=== PATIENT | male | born 1935 | race Caucasian/White ===

== ENCOUNTER 2024-01-02 11:10 | Outpatient (RCR) | payer MEDICARE, SELFPAY | END 2024-01-02 23:59 | disposition home or self-care (01) | LOC: RPT 11:10 | PROVIDERS: ATTENDING PHYSICIAN Internal Medicine | DX: R42 Dizziness and giddiness (principal); R26.2 Difficulty in walking, not elsewhere classified; R26.9 Unspecified abnormalities of gait and mobility; Z73.6 Limitation of activities due to disability; M62.81 Muscle weakness (generalized) | CPT/HCPCS: 97110; 97112; 97162 ==

== ENCOUNTER 2024-01-18 15:08 | Emergency (ER) | payer MEDICARE, SELFPAY ==
[2024-01-18 15:18] VITALS: BP 134/92
[2024-01-18 15:52] LABS: % Basophils 0.5 % (0-2); % Eosinophils 4.1 % (0-6); % Immature Granulocytes 0.3 % (0-0.5); % Lymphocytes 35.4 % (20.5-51.1); % Monocytes 6.4 % (1.7-9.3); % Neutrophils 53.3 % (42.2-75.2); Absolute Eosinophils 0.3 10^3/uL (0-0.7); Absolute Lymphocytes 2.6 10^3/uL (1.2-3.4); Absolute Monocytes 0.5 10^3/uL (0.1-0.6); Absolute Neutrophils 3.9 10^3/uL (1.4-6.5); Hemoglobin 14.2 g/dL (13.0-18.0); Mean Corp Hgb Conc. 34.6 g/dL (33.0-37.0); Mean Corpuscular Hgb 31.7 pg (27.0-31.0); Mean Corpuscular Volume 91.5 fL (80.0-94.0); Nucleated Red Blood Cells % 0 % (-); Platelet Count 230 10^3/uL (130-400); Red Blood Cell Count 4.48 10^6/uL (4.70-6.10); Red Cell Dist. Width 13.4 % (11.5-14.5); White Blood Cell Count 7.3 10^3/uL (4.8-10.8)
[2024-01-18 16:00] LABS: ALT (SGPT) 26 U/L (0-50); AST (SGOT) 32 U/L (17-59); Albumin 4.6 g/dl (3.5-5.0); Alkaline Phosphatase 71 U/L (38-126); Blood Urea Nitrogen 15 mg/dl (9-20); Calcium 9.9 mg/dl (8.4-10.2); Carbon Dioxide 26 mmol/L (22-30); Chloride 105 mmol/L (98-107); Glucose 95 mg/dl (70-99); Sodium 137 mmol/L (135-145); Total Bilirubin 0.9 mg/dl (0.2-1.3); Total Protein 7.4 g/dl (6.3-8.2); eGFR > 60.00
[2024-01-18 16:03] LABS: INR 1.06; PT 13.9 Sec (11.4-14.6)
[2024-01-18 16:08] LABS: APTT 27.7 Sec (23.4-35.0)
[2024-01-18 16:11] LABS: Troponin I < 0.012 ng/ml
--- NOTE | 2024-01-18 18:08 | ED.CVA ---
History of Present Illness
General
Chief Complaint: CVA/TIA Symptoms
Time Seen by Provider: 01/18/24 18:08
Onset of Stroke Symptoms
Onset of symptoms known: Yes
Date of onset of symptoms: 01/18/24
Time of onset of symptoms: 17:15
Time pt last seen normal is known: Yes
Date last time pt seen normal: 01/18/24
Time last time pt seen normal: 17:15
Travel History
Have you had any contact with someone who has COVID-19?: No
Do you have any symptoms of coronavirus? Fever > 100 degrees, chills, cough, shortness of breath, sore throat, loss of taste or smell, muscle aches, or headache?: No
History of Present Illness
History of Present Illness:
HPI: Patient came in from home by ambulance. Apparently there was some concern for stroke however there was no evidence for stroke on EMT evaluation. I spoke to the caregiver at bedside who states that for several minutes, the patient had
expressive aphasia and there seem to be a unilateral facial droop. The patient himself seems to minimize the symptoms and relates it to maybe even having a tic from when he was a young child. Regardless he has no symptoms currently. He apparently
was on the phone with his ex- in [place] to also noted that there seem to be something wrong. Caregiver at bedside also noted that the patient had recurrent episodes of urination 4 times during this episode.
EXAM:
GENERAL: Well appearing in no distress
HEENT: Moist oral mucosa, no carotid bruits noted
CARDIOVASCULAR: No murmurs, normal heart rate, regular rhythm, No chest wall tenderness
PULMONARY: No respiratory distress, breath sounds are clear and equal
ABDOMEN: Soft with no peritoneal signs, no tenderness
NEUROLOGIC: Very good strength all extremities, no coordination deficits, NIHSS equals 0, GCS 15, normal finger-nose testing bilaterally, he was able to walk without assistance other than his cane
PSYCHIATRIC: Appropriate mental status, normal insight and judgement
EXTREMITIES: Nontender, no edema, moves all extremities equally
SKIN: No rash, no lesions
TIME OF INITIAL ENCOUNTER: 6:30 PM
NUMBER AND COMPLEXITY OF PROBLEMS ADDRESSED AT THE ENCOUNTER
� Chronic conditions affecting care: High blood pressure and high cholesterol, has had problems with vertigo, diet-controlled diabetes
� Acute Exacerbation and/or Progression of Chronic Illness: This is an acute problem
� Differential Diagnosis includes: TIA/CVA, UTI, electrolyte abnormality, anemia
AMOUNT AND/OR COMPLEXITY OF DATA TO BE REVIEWED AND ANALYZED
� I performed an independent evaluation of and my interpretation is:
EKG: Sinus 80, right bundle branch block, frequent PACs
CT: CT of the brain shows no acute abnormality
X-rays:
Laboratory Studies: CBC, chemistries unremarkable
Other:
� Review of other/old records: I reviewed old records, there is no change in his hemoglobin today compared to prior
� Clinical information was obtained by an independent historian: I spoke to caregiver at bedside
� Prescriptions/Medications Considered but not given:
� Further testing considered but not performed: I considered CTA for further evaluation of the carotids
RISK OF COMPLICATIONS AND/OR MORBIDITY OR MORTALITY OF PATIENT MANAGEMENT
� Social determinants of health affecting care: Lives at home and has care at home
� Discussion with other providers: I discussed case with Dr. Umana
� Escalation of care including admission/observation vs risk of discharge considered: Suspect TIA however the patient adamantly refuses to stay in the hospital. I informed him of the risks and benefits of staying in the
hospital. Lab work is unremarkable. NIHSS 0. Although caregiver was concerned about the possible of UTI, urinalysis shows no evidence of UTI, other basic labs normal. I discussed case with Dr. Umana�I offered CTA to the patient the patient
adamantly states that he had recent carotid evaluation by ultrasound with Dr. Tapia. I also suggest that he start a baby aspirin. I informed patient and the caregiver that his symptoms could be a warning that he may have a stroke in the future.
Past History
Past History
ED Past Medical History: Cancer (Prostate cancer), HTN, Hypercholesterolemia and Other (Kidney stones, osteoarthritis, vertigo)
ED Past Surgical History: Orthopedic (Bilateral hip replacement) and Other (Lithotripsy 2003)
Social History
Tobacco: Smoker (Cigars)
Alcohol: Occasional
Drug: None
Personal:
Living: alone
Employment: Retired ([employer])
Family History
Family History: Hypertension and Other (stroke father 70); Negative CAD or Sudden
Phy Exam
Physical Exam
Physical Exam:
See HPI
Course
Orders/Labs/Results
Orders:
Orders
01/18/24 15:29
ECG [Electrocardiogram (*1)] Urgent
Reason for Study: TIA/Stroke
01/18/24 15:30
EKG- Treatment ONCE
01/18/24 15:37
Complete Blood Count/With Diff Urgent
Comprehensive Metabolic Panel Urgent
PTT Urgent
Prothrombin Time Urgent
Troponin I Urgent
01/18/24 18:40
Urinalysis Reflex To Culture Urgent
Date Specimen was Collected: 01/18/24
Time Specimen was Collected: 18:39
01/18/24 18:50
CT Head W/o Iv Contrast Urgent
Comment:
Reason For Exam: resolved aphasia
Abnormal Lab Results
01/18/24
15:37
RBC 4.48 L 10^6/uL
(4.70-6.10)
MCH 31.7 H pg
(27.0-31.0)
01/18/24 15:37
01/18/24 15:37
Vital Signs
Initial and Last Documented VS:
Initial Vital Signs
Temp Pulse Resp BP Pulse Ox
98.1 F 63 16 134/92 100
01/18/24 15:18 01/18/24 15:18 01/18/24 15:18 01/18/24 15:18 01/18/24 15:18
Last Documented Vital Signs
Temp Pulse Resp BP Pulse Ox
98.1 F 63 16 134/92 100
01/18/24 15:18 01/18/24 15:18 01/18/24 15:18 01/18/24 15:18 01/18/24 15:18
*Critical Care Note
Total Time (30-74mins, 75-104mins- exclusive of procedures): Not Applicable
ED Attending Note
-
Portions of this chart may have been created with voice recognition software.� Occasional wrong word or��sound alike� substitutions may have occurred due to the inherent limitations of voice recognition software.
Discharge Plan
Departure
Prescriptions:
No Action
nifedipine 60 MG tablet extended release
60 mg PO DAILY
Centrum Silver 1 EACH tablet
1 ea PO DAILY
atorvastatin [Lipitor] 10 mg Tablet
10 mg PO HS
Referrals:
NONE,* [Family Provider] -
Interventions
Interventions:
*Risk Screen - Suicide Last Done: 01/18/24 19:17
*General Assessment Last Done: 01/18/24 19:17
*Neglect/Abuse Screening Last Done: 01/18/24 19:17
ED- Fall Risk Assessment Last Done: 01/18/24 19:17
ED- Pulmonary Assessment Last Done: 01/18/24 19:17
ED- Neurological Assessment Last Done: 01/18/24 19:17
ED- Cardiac Assessment Last Done: 01/18/24 19:17
ED Swallowing Screen Last Done: 01/18/24 19:19
Discharge Date and Time
Print Language: TELUGU
[2024-01-18 18:45] LABS: Urine Albumin Negative (Neg - Trace); Urine Bilirubin Negative (Negative); Urine Character Clear (Clear); Urine Color Yellow; Urine Glucose Negative (Negative); Urine Ketone Negative (Negative); Urine Leukocyte Negative (Negative); Urine Nitrite Negative (Negative); Urine Occult Blood Negative (Negative); Urine Specific Gravity 1.005 (<1.030); Urine Urobilinogen Negative (Neg - 1+)
== END 2024-01-18 21:24 | disposition home or self-care (01) ==
LOC: EMR 15:08
PROVIDERS: Emergency Medicine; EMERGENCY PHYSICIAN Emergency Medicine
DX: G45.9 Transient cerebral ischemic attack, unspecified (principal); I10 Essential (primary) hypertension; F17.290 Nicotine dependence, other tobacco product, uncomplicated
CPT/HCPCS: 99285; 70450; 80053; 81003; 84484; 85025; 85610; 85730; 93005

== ENCOUNTER 2024-02-06 09:59 | Outpatient (RCR) | payer MEDICARE, SELFPAY | END 2024-02-06 23:59 | disposition home or self-care (01) | LOC: RPT 09:59 | PROVIDERS: ATTENDING PHYSICIAN Internal Medicine | DX: R42 Dizziness and giddiness (principal); R26.2 Difficulty in walking, not elsewhere classified; Z73.6 Limitation of activities due to disability | CPT/HCPCS: 97110; 97112 ==

== ENCOUNTER 2024-03-02 10:15 | Outpatient (RCR) | payer MEDICARE, SELFPAY | END 2024-03-02 23:59 | disposition home or self-care (01) | LOC: RPT 10:15 | PROVIDERS: ATTENDING PHYSICIAN Internal Medicine | DX: R42 Dizziness and giddiness (principal); R26.2 Difficulty in walking, not elsewhere classified; Z91.81 History of falling | CPT/HCPCS: 97110; 97112 ==

== ENCOUNTER → 2024-03-12 11:15 | Outpatient (REF) | payer MEDICARE, SELFPAY | LOC: RAD 11:15 | PROVIDERS: ATTENDING PHYSICIAN Internal Medicine | DX: M25.551 Pain in right hip (principal); M25.512 Pain in left shoulder | CPT/HCPCS: 73030; 73502 ==

== ENCOUNTER 2024-03-17 18:16 | Emergency (ER) | payer SELFPAY ==
[2024-03-17 18:20] VITALS: BP 156/74
[2024-03-17 18:25] VITALS: BP 152/55
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
[2024-03-17 19:00] VITALS: BP 125/75
--- NOTE | 2024-03-17 19:30 | EDRN ---
Patient ambulated to the restroom using a walker and back in bed resting comfortably.
[2024-03-17 19:40] LABS: % Basophils 0.4 % (0-2); % Eosinophils 3.5 % (0-6); % Immature Granulocytes 0.4 % (0-0.5); % Lymphocytes 18.5 % (20.5-51.1); % Monocytes 9.5 % (1.7-9.3); % Neutrophils 67.7 % (42.2-75.2); Absolute Eosinophils 0.4 10^3/uL (0-0.7); Absolute Lymphocytes 1.9 10^3/uL (1.2-3.4); Absolute Neutrophils 7.1 10^3/uL (1.4-6.5); Hematocrit 37.6 % (39.0-52.0); Hemoglobin 13.5 g/dL (13.0-18.0); Mean Corp Hgb Conc. 35.9 g/dL (33.0-37.0); Mean Corpuscular Hgb 31.3 pg (27.0-31.0); Mean Corpuscular Volume 87.2 fL (80.0-94.0); Mean Platelet Volume 9.8 fL (7.4-10.4); Nucleated Red Blood Cells % 0 % (-); Platelet Count 237 10^3/uL (130-400); Red Blood Cell Count 4.31 10^6/uL (4.70-6.10); Red Cell Dist. Width 12.8 % (11.5-14.5); White Blood Cell Count 10.5 10^3/uL (4.8-10.8)
[2024-03-17 19:44] LABS: Urine Albumin Negative (Neg - Trace); Urine Bilirubin Negative (Negative); Urine Character Clear (Clear); Urine Color Yellow; Urine Glucose Negative (Negative); Urine Ketone Negative (Negative); Urine Leukocyte Negative (Negative); Urine Nitrite Negative (Negative); Urine Occult Blood Negative (Negative); Urine Urobilinogen Negative (Neg - 1+); Urine pH 6.5 (5.0-9.0)
[2024-03-17 19:56] LABS: ALT (SGPT) 19 U/L (0-50); AST (SGOT) 27 U/L (17-59); Alkaline Phosphatase 77 U/L (38-126); Blood Urea Nitrogen 17 mg/dl (9-20); Calcium 9.2 mg/dl (8.4-10.2); Carbon Dioxide 26 mmol/L (22-30); Chloride 101 mmol/L (98-107); Glucose 119 mg/dl (70-99); Potassium 3.7 mmol/L (3.5-5.1); Sodium 135 mmol/L (135-145); Total Bilirubin 1.1 mg/dl (0.2-1.3); Total Protein 6.7 g/dl (6.3-8.2); eGFR > 60.00
[2024-03-17 20:00] VITALS: BP 138/75
[2024-03-17 21:13] VITALS: BP 105/76
--- NOTE | 2024-03-17 21:15 | EDRN ---
Patient ambulated into the restroom and back in bed resting comfortably, Dr. Medina will be coming in to speak with him about discharge plan.
== END 2024-03-17 22:12 | disposition home or self-care (01) ==
LOC: EMR 18:16
PROVIDERS: EMERGENCY PHYSICIAN Student in an Organized Health Care Education/Training Program; FAMILY PHYSICIAN Internal Medicine
DX: Z04.1 Encounter for examination and observation following transport accident (principal); V89.2XXA Person injured in unspecified motor-vehicle accident, traffic, initial encounter; Y92.410 Unspecified street and highway as the place of occurrence of the external cause; I10 Essential (primary) hypertension; E78.00 Pure hypercholesterolemia, unspecified; M19.90 Unspecified osteoarthritis, unspecified site; F17.290 Nicotine dependence, other tobacco product, uncomplicated; Z82.3 Family history of stroke; Z82.49 Family history of ischemic heart disease and other diseases of the circulatory system; Z85.46 Personal history of malignant neoplasm of prostate; Z87.442 Personal history of urinary calculi; Z96.643 Presence of artificial hip joint, bilateral
CPT/HCPCS: 99283; 80053; 81003; 85025

== ENCOUNTER → 2024-03-19 10:55 | Outpatient (REF) | payer MEDICARE, SELFPAY | LOC: REG 10:55 | PROVIDERS: ATTENDING PHYSICIAN Radiology Radiation Oncology; FAMILY PHYSICIAN Internal Medicine; REFERRING PHYSICIAN Specialist | DX: C61 Malignant neoplasm of prostate (principal) | CPT/HCPCS: 36415; 84153 ==

== ENCOUNTER 2024-04-02 09:25 | Outpatient (RCR) | payer MEDICARE, SELFPAY | END 2024-04-02 23:59 | disposition home or self-care (01) | LOC: RPT 09:25 | PROVIDERS: ATTENDING PHYSICIAN Internal Medicine | DX: R26.9 Unspecified abnormalities of gait and mobility (principal); R42 Dizziness and giddiness; M25.512 Pain in left shoulder; Z73.6 Limitation of activities due to disability | CPT/HCPCS: 97110; 97112; 97164 ==

== ENCOUNTER 2024-04-09 09:53 | Outpatient (RCR) | payer MEDICARE, SELFPAY | END 2024-04-09 23:59 | disposition home or self-care (01) | LOC: RPT 09:53 | PROVIDERS: ATTENDING PHYSICIAN Internal Medicine | DX: R42 Dizziness and giddiness (principal); R26.9 Unspecified abnormalities of gait and mobility; M25.512 Pain in left shoulder | CPT/HCPCS: 97110; 97112 ==

== ENCOUNTER 2024-05-28 12:51 | Outpatient (RCR) | payer MEDICARE, SELFPAY | END 2024-05-28 23:59 | disposition home or self-care (01) | LOC: RPT 12:51 | PROVIDERS: ATTENDING PHYSICIAN Internal Medicine | DX: R42 Dizziness and giddiness (principal); R26.2 Difficulty in walking, not elsewhere classified; Z73.6 Limitation of activities due to disability | CPT/HCPCS: 97110; 97112 ==

== ENCOUNTER 2024-07-09 09:55 | Outpatient (RCR) | payer MEDICARE, SELFPAY | END 2024-07-09 23:59 | disposition home or self-care (01) | LOC: RPT 09:55 | PROVIDERS: ATTENDING PHYSICIAN Internal Medicine | DX: R26.89 Other abnormalities of gait and mobility (principal); R42 Dizziness and giddiness; M25.512 Pain in left shoulder; Z73.6 Limitation of activities due to disability; R26.2 Difficulty in walking, not elsewhere classified; M62.81 Muscle weakness (generalized) | CPT/HCPCS: 97110; 97112 ==

== ENCOUNTER 2024-07-15 10:46 | Emergency (ER) | payer MEDICARE, SELFPAY ==
[2024-07-15 10:48] VITALS: BP 126/61
[2024-07-15 11:39] VITALS: BMI 25.3
[2024-07-15 11:54] LABS: % Basophils 0.3 % (0-2); % Eosinophils 4.2 % (0-6); % Immature Granulocytes 0.3 % (0-0.5); % Lymphocytes 17.9 % (20.5-51.1); % Monocytes 7.6 % (1.7-9.3); % Neutrophils 69.7 % (42.2-75.2); Absolute Eosinophils 0.4 10^3/uL (0-0.7); Absolute Lymphocytes 1.7 10^3/uL (1.2-3.4); Absolute Monocytes 0.7 10^3/uL (0.1-0.6); Absolute Neutrophils 6.8 10^3/uL (1.4-6.5); Hematocrit 38.8 % (39.0-52.0); Hemoglobin 13.1 g/dL (13.0-18.0); Mean Corp Hgb Conc. 33.8 g/dL (33.0-37.0); Mean Corpuscular Volume 88.8 fL (80.0-94.0); Nucleated Red Blood Cells % 0 % (-); Platelet Count 208 10^3/uL (130-400); Red Blood Cell Count 4.37 10^6/uL (4.70-6.10); Red Cell Dist. Width 13.3 % (11.5-14.5); White Blood Cell Count 9.7 10^3/uL (4.8-10.8)
--- NOTE | 2024-07-15 11:59 | ED.GENMED ---
History of Present Illness
General
Chief Complaint: Fall
Source: patient
Exam Limitations: none
Time Seen by Provider: 07/15/24 11:17
Nursing documentation reviewed up to this point in time: agreed with
History of Present Illness
History of Present Illness:
Patient is an 88-year-old male who lives alone presents to the ER for evaluation. Patient for the past 3 months he has had a lot of balance issues and is in physical therapy for this. He is followed by his family doctor for this.
he fell however 3 times this week and did hit his head 1 out of 3 times. He is not on anticoagulation. He does complain of soreness to his upper back because of the fall. He denies any generalized weakness. he denies any upper or lower extremity
injury. He denies any weakness to upper or lower extremities. He denies any nausea vomiting headache.
Patient reports he was driven to hospital by friend. He does lives alone and does drive.
He he denies any recent illness fever chills. Denies any cough. Denies any runny nose. Denies abdominal pain nausea vomiting.
He denies any urinary frequency urgency or dysuria. He reports he has a good appetite.
Past History
Past History
ED Past Medical History: Cancer (Prostate cancer), HTN, Hypercholesterolemia and Other (Kidney stones, osteoarthritis, vertigo)
ED Past Surgical History: Orthopedic (Bilateral hip replacement) and Other (Lithotripsy 2003)
Social History
Tobacco: Smoker (Cigars)
Alcohol: Occasional
Drug: None
Personal:
Living: alone
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
Family History
Family History: Hypertension and Other (stroke father 70); Negative CAD or Sudden
Review of Systems
Review of Systems
Allergies reviewed?: Yes
All Other Systems: ROS reviewed and negative except as documented in HPI and ROS
Constitutional: Reports no symptoms
EENT: Reports no symptoms
Cardiac: Reports no symptoms
ABD/GI: Reports no symptoms
: Reports no symptoms
Musculoskeletal: Reports no symptoms
Skin: Reports no symptoms
Neurological: Reports other (balance issues )
Psychiatric: Reports no symptoms
Phy Exam
General Physical Exam
General Presentation: no apparent distress
General age: appears stated age
General Skin: warm and dry
General Habitus: normal
General Mental: alert
General Hydration: appears well hydrated
Cardiovascular Exam
Cardiovascular Exam: regular rate/rhythm, no murmur and normal peripheral pulses
Pulmonary Exam
Pulmonary Exam: lungs clear and no respiratory distress
Gastrointestinal Exam
Gastrointestinal Exam: non tender and soft
Neurological Exam
Neurological Exam: alert and oriented x3
Musculoskeletal Exam
Musculoskeletal Exam: full ROM and other (+ erythema to thoracic back + midline thoracic tenderness )
Skin Exam
Skin Exam: normal color and warm/dry
Psychiatric Exam
Psychiatric Exam: normal mood/affect
Course
Orders/Labs/Results
Orders:
Orders
07/15/24 11:35
EKG [Electrocardiogram (*1)] Urgent
Reason for Study: Vertigo / Dizzy
CT Head W/o Iv Contrast Urgent
Comment:
Reason For Exam: multiple falls with + head strike
07/15/24 11:36
EKG- Treatment ONCE
07/15/24 11:46
Complete Blood Count/With Diff Urgent
Comprehensive Metabolic Panel Urgent
07/15/24 12:03
CT Cervical Spine W/o Iv Contr Urgent
Comment:
Reason For Exam: trauma
CR Thoracic Spine 3 Views Urgent
Reason For Exam: trauma
07/15/24 13:45
UA Reflex to Culture [Urinalysis Reflex To Culture] Urgent
Date Specimen was Collected: 07/15/24
Time Specimen was Collected: 11:57
Abnormal Lab Results
07/15/24
11:46
RBC 4.37 L 10^6/uL
(4.70-6.10)
Hct 38.8 L %
(39.0-52.0)
Absolute Neuts (auto) 6.8 H 10^3/uL
(1.4-6.5)
Absolute Monos (auto) 0.7 H 10^3/uL
(0.1-0.6)
Lymphocytes % 17.9 L %
(20.5-51.1)
Glucose 135 H mg/dl
(70-99)
Total Protein 6.2 L g/dl
(6.3-8.2)
07/15/24 11:46
07/15/24 11:46
Vital Signs
Initial and Last Documented VS:
Initial Vital Signs
Temp Pulse Resp BP Pulse Ox
99.2 F 80 16 126/61 97
07/15/24 10:48 07/15/24 10:48 07/15/24 10:48 07/15/24 10:48 07/15/24 10:48
Last Documented Vital Signs
Temp Pulse Resp BP Pulse Ox
99.2 F 67 24 141/68 98
07/15/24 10:48 07/15/24 12:30 07/15/24 12:30 07/15/24 12:00 07/15/24 12:00
MDM/Problems Addressed
MDM/Problems Addressed:
Patient is a 88-year-old male who lives alone presents awake alert no acute distress has had chronic balance issues for the past several months and is presently in physical therapy for this. He did present because he fell several times in the past
week. He does live alone is not on anticoagulation. He is currently asymptomatic in no acute distress no headache no obvious tender on exam CT head and cervical spine negative. He was mildly sore in his thoracic spine and x-rays were negative.
His labs unremarkable. He denies any recent fever chills he is afebrile with a normal white count negative urinalysis.
His hemoglobin is 13.3 his kidney function is normal.
In addition to patient's family doctor he has seen his family doctor his who is a neurologist who is recommended therapy discussed the importance of following up with a family doctor and his neurologist
Patient ambulated back and forth in the ER treatment room very steady on his feet feels stable to go home and will follow-up with his family doctor for this. He does have support at home.
*Radiology
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
*Pulse Oximetry
Patient hypoxic: no
*EKG
Interpreted by ED Provider?: Yes
Interpretation: normal
Heart Rate: 72
Rate: normal
Rhythm: sinus
Ischemia: non-specific ST changes
*Critical Care Note
Total Time (30-74mins, 75-104mins- exclusive of procedures): Not Applicable
ED Attending Note
-
Portions of this chart may have been created with voice recognition software.� Occasional wrong word or��sound alike� substitutions may have occurred due to the inherent limitations of voice recognition software.
Discharge Plan
Departure
Patient Disposition: Home (Routine Discharge)
Date of Disposition: 07/15/24
Time of Disposition: 14:10
Patient with high blood pressure during this ER visit?: Yes
Condition: Fair
Covid-19: Not Applicable
Discharge Problem:
Fall
Instructions: Head Injury in Adults (DC), Preventing falls in adults, BLOOD PRESSURE
Prescriptions:
No Action
nifedipine 60 MG tablet extended release
60 mg PO DAILY
Centrum Silver 1 EACH tablet
1 ea PO DAILY
atorvastatin [Lipitor] 10 mg Tablet
10 mg PO HS
Referrals:
UNKNOWN - PT DOES,NOT KNOW [Family Provider] -
Activity Restrictions/Additional Instructions:
As discussed please call your family doctor tomorrow to make an appointment in the next several days for reevaluation of continued symptoms. Your cat scans were negative and your back xray was negative for fracture.
Return if any worsening of symptoms.
Interventions
Interventions:
*Risk Screen - Suicide Last Done: 07/15/24 10:52
*General Assessment Last Done: 07/15/24 11:39
*Neglect/Abuse Screening Last Done: 07/15/24 10:52
ED- Fall Risk Assessment Last Done: 07/15/24 11:39
*ED COVID-19 Vaccine History Last Done: 07/15/24 11:39
ED-Musculoskeletal Assessment Last Done: 07/15/24 11:39
ED- Neurological Assessment Last Done: 07/15/24 11:39
ED-Skin Assessment Last Done: 07/15/24 11:39
Discharge Date and Time
Print Language: INDONESIAN
[2024-07-15 12:00] VITALS: BP 141/68
[2024-07-15 12:11] LABS: ALT (SGPT) 24 U/L (0-50); AST (SGOT) 34 U/L (17-59); Albumin 3.9 g/dl (3.5-5.0); Alkaline Phosphatase 58 U/L (38-126); Blood Urea Nitrogen 17 mg/dl (9-20); Calcium 9.2 mg/dl (8.4-10.2); Carbon Dioxide 27 mmol/L (22-30); Chloride 101 mmol/L (98-107); Estimated Creatinine Clearance 67 ml/min; Glucose 135 mg/dl (70-99); Potassium 3.9 mmol/L (3.5-5.1); Sodium 139 mmol/L (135-145); Total Bilirubin 0.9 mg/dl (0.2-1.3); Total Protein 6.2 g/dl (6.3-8.2); eGFR > 60.00
[2024-07-15 14:02] LABS: Urine Albumin Negative (Neg - Trace); Urine Bilirubin Negative (Negative); Urine Character Clear (Clear); Urine Color Yellow; Urine Glucose Negative (Negative); Urine Ketone Negative (Negative); Urine Leukocyte Negative (Negative); Urine Nitrite Negative (Negative); Urine Occult Blood Negative (Negative); Urine Urobilinogen Negative (Neg - 1+)
[2024-07-15 14:24] VITALS: BP 141/87
== END 2024-07-15 14:26 | disposition home or self-care (01) ==
LOC: EMR 10:46
PROVIDERS: Nurse Practitioner; EMERGENCY PHYSICIAN Emergency Medicine
DX: M54.6 Pain in thoracic spine (principal); W19.XXXA Unspecified fall, initial encounter; I10 Essential (primary) hypertension; E78.00 Pure hypercholesterolemia, unspecified; F17.290 Nicotine dependence, other tobacco product, uncomplicated; M19.90 Unspecified osteoarthritis, unspecified site; Z60.2 Problems related to living alone; Z82.3 Family history of stroke; Z82.49 Family history of ischemic heart disease and other diseases of the circulatory system; Z85.46 Personal history of malignant neoplasm of prostate; Z87.442 Personal history of urinary calculi; Z96.643 Presence of artificial hip joint, bilateral
CPT/HCPCS: 99284; 70450; 72072; 72125; 80053; 81003; 85025; 93005

== ENCOUNTER 2024-07-23 10:10 | Outpatient (RCR) | payer MEDICARE, SELFPAY | END 2024-07-23 23:59 | disposition home or self-care (01) | LOC: RPT 10:10 | PROVIDERS: ATTENDING PHYSICIAN Internal Medicine | DX: R26.9 Unspecified abnormalities of gait and mobility (principal); R42 Dizziness and giddiness; M25.512 Pain in left shoulder; Z73.6 Limitation of activities due to disability | CPT/HCPCS: 97110; 97112 ==

== ENCOUNTER 2024-09-03 10:08 | Outpatient (RCR) | payer MEDICARE, SELFPAY | END 2024-09-03 23:59 | disposition home or self-care (01) | LOC: RPT 10:08 | PROVIDERS: ATTENDING PHYSICIAN Internal Medicine | DX: R42 Dizziness and giddiness (principal); R26.2 Difficulty in walking, not elsewhere classified; R26.89 Other abnormalities of gait and mobility; M25.512 Pain in left shoulder; Z73.6 Limitation of activities due to disability; M62.81 Muscle weakness (generalized) | CPT/HCPCS: 97110; 97112 ==

== ENCOUNTER 2024-10-08 09:25 | Outpatient (RCR) | payer MEDICARE, SELFPAY | END 2024-10-08 23:59 | disposition home or self-care (01) | LOC: RPT 09:25 | PROVIDERS: ATTENDING PHYSICIAN Internal Medicine | DX: R42 Dizziness and giddiness (principal); R26.2 Difficulty in walking, not elsewhere classified; R26.89 Other abnormalities of gait and mobility; M25.512 Pain in left shoulder; Z73.6 Limitation of activities due to disability; M62.81 Muscle weakness (generalized) | CPT/HCPCS: 97110; 97112 ==

== ENCOUNTER 2024-11-05 09:43 | Outpatient (RCR) | payer MEDICARE, SELFPAY | END 2024-11-05 23:59 | disposition home or self-care (01) | LOC: RPT 09:43 | PROVIDERS: ATTENDING PHYSICIAN Internal Medicine | DX: R42 Dizziness and giddiness (principal); R26.2 Difficulty in walking, not elsewhere classified; R26.89 Other abnormalities of gait and mobility; M25.512 Pain in left shoulder; Z73.6 Limitation of activities due to disability; M62.81 Muscle weakness (generalized) | CPT/HCPCS: 97010; 97110 ==

== ENCOUNTER 2024-11-13 12:22 | Emergency (ER) | payer MEDICARE, SELFPAY ==
[2024-11-13 12:25] VITALS: BP 161/105; BMI 24.8
[2024-11-13 12:32] VITALS: BP 161/105
--- NOTE | 2024-11-13 12:44 | ED.GENMED ---
History of Present Illness
General
Chief Complaint: Change in Mental Status
Source: patient
Exam Limitations: dementia
Time Seen by Provider: 11/13/24 12:41
History of Present Illness
History of Present Illness:
See MDM
Past History
Past History
ED Past Medical History: Cancer (Prostate cancer), HTN, Hypercholesterolemia and Other (Kidney stones, osteoarthritis, vertigo)
ED Past Surgical History: Orthopedic (Bilateral hip replacement) and Other (Lithotripsy 2003)
Social History
Tobacco: Smoker (Cigars)
Alcohol: Occasional
Drug: None
Personal:
Living: alone
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
Family History
Family History: Hypertension and Other (stroke father 70); Negative CAD or Sudden
Phy Exam
Physical Exam
Physical Exam:
See MDM
Course
Orders/Labs/Results
Orders:
Orders
11/13/24 12:35
Electrocardiogram (*1) Urgent
Reason for Study: Other
Other Reason for Exam: Possible Sepsis
Cardiac Monitoring- Treatment ONCE
EKG- Treatment ONCE
IV Insert/Care/Rem.- Treatment PRN
O2 Therapy [RESP] Urgent
Titrate/Wean O2 to maintain O2 sat greater than (%): 93
Special Instructions: TO MAINTAIN CONTINUOUS O2 SATS > OR = 93%
Pulse Ox/cont/shift [RESP] Urgent
Quantity: 1
Special Instructions: CONTINUOUS
11/13/24 12:36
Complete Blood Count/With Diff Urgent
Comprehensive Metabolic Panel Urgent
Lactic Acid Q4H
Comment: ON ICE, CANCEL 2ND ORDER IF FIRST LACTIC ACID LEVEL <2
Urinalysis Reflex To Culture Urgent
Date Specimen was Collected: 11/13/24
Time Specimen was Collected: 12:35
11/13/24 12:38
Speech Screening from [facility] Routine
11/13/24 12:43
0.9% Sodium Chloride 1000 ml [Nss] 1,000 ml IV BOLUS
11/13/24 12:44
COVID-19 Antigen Urgent
Source: Nasal Swab
INF RAPID [Influenza A+B Rapid Molecular] Urgent
DAVE Source: Nasal Swab
Specimen Description:
11/13/24 12:45
Acetaminophen [Tylenol] 1,000 mg PO NOW STA
11/13/24 13:06
Lorazepam [Ativan] 1 mg IV NOW STA
11/13/24 13:07
Lorazepam [Ativan] 2 mg .ROUTE .STK-MED ONE
11/13/24 15:02
CR Chest Portable - 1 View Urgent
Comment:
Reason For Exam: Fever, confused
Reason Study Needs to be Portable: Unable to Transport
11/13/24 15:17
Restraints - Non Violent As Directed
Justification-Patient:: 2-Protective Intervention
Restraint Type-: Soft Limb-L&R Wrist/4rail
Apply From (date): 11/13/24
Apply from (time): 15:17
Remove (date): 11/14/24
Remove (time): 23:59
11/13/24 15:31
Lorazepam [Ativan] 2 mg .ROUTE .STK-MED ONE
11/13/24 15:34
Lorazepam [Ativan] 1 mg IV NOW STA
11/13/24 16:45
Lactic Acid Q4H
Comment: ON ICE, CANCEL 2ND ORDER IF FIRST LACTIC ACID LEVEL <2
Abnormal Lab Results
11/13/24
12:36
Absolute Neuts (auto) 6.7 H 10^3/uL
(1.4-6.5)
Lymphocytes % 17.1 L %
(20.5-51.1)
Glucose 114 H mg/dl
(70-99)
Albumin 5.1 H g/dl
(3.5-5.0)
11/13/24 12:36
11/13/24 12:36
Vital Signs
Initial and Last Documented VS:
Initial Vital Signs
Temp Pulse Resp BP Pulse Ox
100.3 F 92 20 161/105 98
11/13/24 12:25 11/13/24 12:25 11/13/24 12:25 11/13/24 12:25 11/13/24 12:25
Last Documented Vital Signs
Temp Pulse Resp BP Pulse Ox
100.3 F 94 24 161/105 97
11/13/24 12:25 11/13/24 14:33 11/13/24 14:33 11/13/24 12:32 11/13/24 12:45
MDM/Problems Addressed
Differential Diagnosis Includes:
HPI and MDM Narrative:
89-year-old male presenting for evaluation of altered mental status. Patient found to be febrile. Patient comes from home and apparently, is unable to care for him. Patient is aggressive and argumentative. He does appear altered and
confused. Will look for infectious source with viral testing and urine. Patient clinically dry. Will give IV fluids to reevaluate. Patient given Tylenol
Physical exam
General: Sitting in bed comfortably but intermittently becomes aggressive
HEENT: protecting airway. Dry mucous membranes
Neck: supple
CV: No evidence of cyanosis. Regular rate and rhythm
Resp: No accessory muscle use. Lungs clear
Abd: Non-distended
Extremities: No deformities
Neuro: alert. Disoriented. Moving all 4 extremities
Psych: Flat affect
Skin: Intact
Problems Addressed including Acute and Chronic Conditions affecting care:
1. Altered mental status
Acuity: acute
Prognosis: stable
Details: Given the fever, will look for infectious etiology such as urinalysis and viral testing.
2. Dehydration
Acuity: acute
Prognosis: stable
Details: Patient given IV fluids
Updates
Fever workup was negative.
Patient has required multiple doses of Ativan for his agitation.
I was about to admit the patient but we called his . I spoke to Miri. She states she did not call 911 to have him admitted. She states that he needed a lift assist at home and was having weakness in his legs. His fever workup was negative.
His labs and urine are negative. I discussed this with Miri and she states she would rather bring him home and then have him admitted. They have 24-hour care at home.
Differential Diagnosis (but not limited to): Urinary tract infection, influenza, dehydration
Testing considered: CT head
Drug therapy (if applicable): OTC meds, please see d/c instruction regarding Rx drugs
Amount and/or Complexity of Data Reviewed
Clinical info obtained from: Patient. Miri states they have care at home and feels comfortable taking him
External data reviewed: N/A
Labs I independently reviewed (but not limited to): White blood cell count normal. Urinalysis negative
Radiology: X-ray independently reviewed: Chest x-ray clear
Pulse Ox: not hypoxic
EKG independently reviewed: Sinus rhythm, PACs, right bundle branch block, no STEMI
Electronics Assembler And Tester: Sinus rhythm
Critical Care: N/A
Risk of Complication:
Social Determinants of health: Good social support
Discussed with other providers: N/A
Escalation of Care includes Admit/Obs: After being observed in the Emergency Department, pt stable for discharge.
Occasional wrong word or 'sound a like' substitutions may have occurred due to the inherent limitations of voice recognition software. Read the chart carefully and recognize, using context, where substitutions have occurred.
*Critical Care Note
Total Time (30-74mins, 75-104mins- exclusive of procedures): Not Applicable
ED Attending Note
-
Portions of this chart may have been created with voice recognition software.� Occasional wrong word or��sound alike� substitutions may have occurred due to the inherent limitations of voice recognition software.
Discharge Plan
Departure
Patient Disposition: Home (Routine Discharge)
Date of Disposition: 11/13/24
Time of Disposition: 16:13
Patient with high blood pressure during this ER visit?: Yes
Discharge Problem:
Altered mental status
Instructions: Altered Mental Status (DC)
Prescriptions:
No Action
nifedipine 60 MG tablet extended release
60 mg PO DAILY
atorvastatin [Lipitor] 10 mg Tablet
10 mg PO HS
Doxycycline
1 dose PO PRN PRN (Reason: infection)
acyclovir
1 dose PO DAILYPRN PRN (Reason: antiviral)
Referrals:
UNKNOWN,NO INTERVIEW [Family Provider] -
Activity Restrictions/Additional Instructions:
Please return for any worsening symptoms.
You may return at any time if you have further concerns.
Please follow up with your doctor at the first available appointment, preferably this week.
Thank you for choosing [facility].
Interventions
Interventions:
*Risk Screen - Suicide Last Done: 11/13/24 12:25
*General Assessment Last Done: 11/13/24 12:25
*Neglect/Abuse Screening Last Done: 11/13/24 12:25
ED- Fall Risk Assessment Last Done: 11/13/24 12:30
*ED COVID-19 Vaccine History Last Done: 11/13/24 12:25
ED- Pulmonary Assessment Last Done: 11/13/24 12:30
ED- Neurological Assessment Last Done: 11/13/24 12:30
ED Swallowing Screen Last Done: 11/13/24 12:38
Discharge Date and Time
Print Language: LAO
[2024-11-13] MEDS: NSS 1000 IV (12:58)
[2024-11-13] MEDS: TYLENOL 1000 MG PO (12:58)
[2024-11-13 13:03] LABS: % Basophils 0.3 % (0-2); % Eosinophils 1.9 % (0-6); % Immature Granulocytes 0.4 % (0-0.5); % Lymphocytes 17.1 % (20.5-51.1); % Monocytes 6.1 % (1.7-9.3); % Neutrophils 74.2 % (42.2-75.2); Absolute Eosinophils 0.2 10^3/uL (0-0.7); Absolute Lymphocytes 1.5 10^3/uL (1.2-3.4); Absolute Monocytes 0.6 10^3/uL (0.1-0.6); Absolute Neutrophils 6.7 10^3/uL (1.4-6.5); Hematocrit 44.9 % (39.0-52.0); Hemoglobin 14.9 g/dL (13.0-18.0); Mean Corp Hgb Conc. 33.2 g/dL (33.0-37.0); Mean Corpuscular Hgb 30.7 pg (27.0-31.0); Mean Corpuscular Volume 92.4 fL (80.0-94.0); Nucleated Red Blood Cells % 0 % (-); Platelet Count 225 10^3/uL (130-400); Red Blood Cell Count 4.86 10^6/uL (4.70-6.10); Red Cell Dist. Width 13.7 % (11.5-14.5)
[2024-11-13] MEDS: ATIVAN 1 MG IV (13:08)
[2024-11-13 13:12] LABS: ALT (SGPT) 19 U/L (0-50); AST (SGOT) 23 U/L (17-59); Albumin 5.1 g/dl (3.5-5.0); Alkaline Phosphatase 98 U/L (38-126); Calcium 9.6 mg/dl (8.4-10.2); Carbon Dioxide 26 mmol/L (22-30); Chloride 104 mmol/L (98-107); Estimated Creatinine Clearance 62 ml/min; Glucose 114 mg/dl (70-99); Potassium 3.7 mmol/L (3.5-5.1); Sodium 141 mmol/L (135-145); Total Bilirubin 1.2 mg/dl (0.2-1.3); Total Protein 8.1 g/dl (6.3-8.2); eGFR > 60.00
[2024-11-13 13:13] LABS: Lactic Acid 1.7 mmol/L (0.7-2.0)
--- NOTE | 2024-11-13 13:16 | EDRN ---
Patient refused to take Tylenol x2 tabs. Patient stated 'I only ever take one and will only take one now.' notified.
[2024-11-13 13:21] LABS: COVID-19 Antigen Negative (Negative)
[2024-11-13 13:44] LABS: Urine Albumin Negative (Neg - Trace); Urine Bilirubin Negative (Negative); Urine Character Clear (Clear); Urine Color Yellow; Urine Glucose Negative (Negative); Urine Ketone Negative (Negative); Urine Leukocyte Negative (Negative); Urine Nitrite Negative (Negative); Urine Occult Blood Negative (Negative); Urine Urobilinogen Negative (Neg - 1+)
[2024-11-13 14:47] LABS: Blood Urea Nitrogen 20 mg/dl (9-20)
[2024-11-13 20:50] VITALS: BP 158/86
== END 2024-11-13 20:52 | disposition home or self-care (01) ==
LOC: EMR 12:22
PROVIDERS: Emergency Medicine; EMERGENCY PHYSICIAN Student in an Organized Health Care Education/Training Program
DX: R41.82 Altered mental status, unspecified (principal); F03.90 Unspecified dementia, unspecified severity, without behavioral disturbance, psychotic disturbance, mood disturbance, and anxiety; E78.00 Pure hypercholesterolemia, unspecified; I10 Essential (primary) hypertension; F17.290 Nicotine dependence, other tobacco product, uncomplicated; Z85.46 Personal history of malignant neoplasm of prostate; Z96.643 Presence of artificial hip joint, bilateral; Z87.442 Personal history of urinary calculi
CPT/HCPCS: 96374; 96361; 99285; 71045; 80053; 81003; 83605; 85025; 87502; 87811; 93005

== ENCOUNTER 2024-11-15 18:12 | Inpatient (IN) | payer MEDICARE, SELFPAY ==
[2024-11-14 17:48] VITALS: BP 181/100
--- NOTE | 2024-11-14 20:52 | ED.GENMED ---
History of Present Illness
General
Chief Complaint: Failure to Thrive
Source: spouse
Exam Limitations: dementia
Time Seen by Provider: 11/14/24 20:41
Nursing documentation reviewed up to this point in time: agreed with
History of Present Illness
History of Present Illness:
89 yo male seen here yesterday for change in mental state, needed Ativan and restraints, aggressive and physical with staff, according to record from yesterday pt did not want patient admitted and wanted him sent back home. He is back at
request of reportedly requesting 'rehab placement.' Reportedly, pt has not eaten or drank since getting back home.
Pt is quiet, picking at monitor cables, drifting off to sleep, moving all extremities
9:00 p.m.: No answer when attempted to call , message to call me back left on her voicemail.
Past History
Past History
ED Past Medical History: Cancer (Prostate cancer), HTN, Hypercholesterolemia and Other (Kidney stones, osteoarthritis, vertigo)
ED Past Surgical History: Orthopedic (Bilateral hip replacement) and Other (Lithotripsy 2003)
Social History
Tobacco: Smoker (Cigars)
Alcohol: Occasional
Drug: None
Personal:
Living: alone
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
Family History
Family History: Hypertension and Other (stroke father 70); Negative CAD or Sudden
Review of Systems
Review of Systems
Allergies reviewed?: Yes
Unable to obtain full review of systems at this time due to: due to acuity
Other source history: ambulance crew
All Other Systems: ROS reviewed and negative except as documented in HPI and ROS
Constitutional: Denies fever
ABD/GI: Denies diarrhea
Musculoskeletal: Denies edema
Skin: Reports no symptoms
Neurological: Reports other (Delirious)
Phy Exam
Physical Exam
Physical Exam:
GENERAL: No acute distress. Intermittently somnolent with outbursts of aggression and obscenities
CONSTITUTIONAL: Afebrile.
EYES: clear, conjunctivae normal
ENMT: dry mucus membranes
RESPIRATORY: Regular respirations, nonlabored, lungs clear.
CARDIOVASCULAR: Regular rate and rhythm, no murmurs, no rubs.
GI: Soft, nontender, normal BS
MUSCULOSKELETAL: Moves with ease. Well perfused. No edema
SKIN: Warm, dry, pink
PSYCH:Agitated, delirious mood and affect. Inappropriate behavior
NEUROLOGIC: Moving all extremities well. No focal neurological deficits
Course
Orders/Labs/Results
Orders:
Orders
11/14/24 21:04
CT Head W/o Iv Contrast Urgent
Comment:
Reason For Exam: mental status change
11/14/24 21:16
Lorazepam [Ativan] 2 mg .ROUTE .STK-MED ONE
11/14/24 21:31
Basic Metabolic Panel Urgent
Complete Blood Count/With Diff Urgent
11/14/24 21:44
Lorazepam [Ativan] 1 mg IV NOW STA
11/14/24 22:43
Admit/Transfer Patient As Directed
Co-Sign Provider:
Level of Care: Observation services
Assign to:: Medical/Surgical
Physician / Group: olga
Diagnosis: metabolic encephalopathy
Chest wo Contrast CT [CT Chest W/o Iv Contrast] Routine
Comment:
Reason For Exam: sob
Code Status As Directed
Resuscitation Status: Full Code
PRN Pain Medication Management As Directed
May give lesser potent ordered pain med per pt: Yes
preference::
Protocol:: Medication orders for pain may be administered in a
manner that supports deferring to patient preference
when the pt is:
- Requesting an ordered lesser potent pain medication.
Least to most potent pain medications are defined
as: acetaminophen < NSAID < tramadol < opioids
(morphine, oxycodone, hydromorphone).
- Requesting a lesser dose of the same medication IF
ORDERED.
- Requesting a less intrusive route of administration
if both routes are prescribed by the provider (PO <
IV).
11/14/24 22:47
EKG [Electrocardiogram (*1)] Stat
Reason for Study: QTc Monitoring
11/14/24 23:25
HydrALAZINE [Apresoline] 10 mg IV Q6HPRN PRN
Abnormal Lab Results
11/14/24
21:31
WBC 12.6 H 10^3/uL
(4.8-10.8)
Abs Immat Gran (auto) 0.1 H 10^3/uL
(0-0.05)
Absolute Neuts (auto) 8.6 H 10^3/uL
(1.4-6.5)
Absolute Monos (auto) 1.1 H 10^3/uL
(0.1-0.6)
Lymphocytes % 20.1 L %
(20.5-51.1)
Creatinine 0.6 L mg/dL
(0.7-1.3)
Glucose 126 H mg/dl
(70-99)
11/14/24 21:31
11/14/24 21:31
Vital Signs
Initial and Last Documented VS:
Initial Vital Signs
Temp Pulse Resp BP Pulse Ox
98.7 F 94 17 181/100 97
11/14/24 17:48 11/14/24 17:48 11/14/24 17:48 11/14/24 17:48 11/14/24 17:48
Last Documented Vital Signs
Temp Pulse Resp BP Pulse Ox
98.7 F 99 17 180/107 94
11/14/24 17:48 11/14/24 23:00 11/14/24 17:48 11/14/24 23:28 11/14/24 21:56
MDM/Problems Addressed
MDM/Problems Addressed:
89 yo male seen here yesterday for change in mental state, needed Ativan and restraints, aggressive and physical with staff, according to record from yesterday pt did not want patient admitted and wanted him sent back home. He is back at
request of reportedly requesting 'rehab placement.' Reportedly, pt has not eaten or drank since getting back home.
Pt is quiet, picking at monitor cables, drifting off to sleep, moving all extremities
9:00 p.m.: No answer when attempted to call , message to call me back left on her voicemail.
Afebrile
9:30 p.m.
Pt with intermittent somnolence and outbursts of batting out his arms, trying to hit and bite staff, yelling obscenities.
Ativan ordered for head CT with good results
CBC WBC 12.6 most likely reactive.
CMP: normal
10:20p.m.
Head CT radiology report read, shows nothing acute.
Plan: Admit intermittent delirium, Case management evaluation for placement.
Unable to reach , not answering phone.
Hospitalist notified of admission.
*Critical Care Note
Total Time (30-74mins, 75-104mins- exclusive of procedures): Not Applicable
ED Attending Note
-
Portions of this chart may have been created with voice recognition software.� Occasional wrong word or��sound alike� substitutions may have occurred due to the inherent limitations of voice recognition software.
Discharge Plan
Departure
Patient Disposition: Admit
Date of Disposition: 11/14/24
Time of Disposition: 22:15
Admit to: Med/Surg
Presentation/result/management discussed w/ accepting MD/DO: Hospitalist
Condition: Fair
Discharge Problem:
Delirium
Interventions
Interventions:
*Risk Screen - Suicide Last Done: 11/14/24 17:52
*General Assessment Last Done: 11/14/24 17:52
*Neglect/Abuse Screening Last Done: 11/14/24 17:52
ED- Fall Risk Assessment Last Done: 11/14/24 20:09
*ED COVID-19 Vaccine History Last Done: 11/14/24 17:52
[2024-11-14 21:38] LABS: % Basophils 0.4 % (0-2); % Eosinophils 1.6 % (0-6); % Immature Granulocytes 0.4 % (0-0.5); % Lymphocytes 20.1 % (20.5-51.1); % Monocytes 8.8 % (1.7-9.3); % Neutrophils 68.7 % (42.2-75.2); Absolute Basophils 0.1 10^3/uL (0-0.2); Absolute Eosinophils 0.2 10^3/uL (0-0.7); Absolute Immature Granulocytes 0.1 10^3/uL (0-0.05); Absolute Lymphocytes 2.5 10^3/uL (1.2-3.4); Absolute Monocytes 1.1 10^3/uL (0.1-0.6); Absolute Neutrophils 8.6 10^3/uL (1.4-6.5); Hematocrit 43.7 % (39.0-52.0); Hemoglobin 15.1 g/dL (13.0-18.0); Mean Corp Hgb Conc. 34.6 g/dL (33.0-37.0); Mean Corpuscular Hgb 30.9 pg (27.0-31.0); Mean Corpuscular Volume 89.4 fL (80.0-94.0); Mean Platelet Volume 9.9 fL (7.4-10.4); Nucleated Red Blood Cells % 0 % (-); Platelet Count 229 10^3/uL (130-400); Red Blood Cell Count 4.89 10^6/uL (4.70-6.10); Red Cell Dist. Width 13.3 % (11.5-14.5); White Blood Cell Count 12.6 10^3/uL (4.8-10.8)
[2024-11-14] MEDS: ATIVAN 1 MG IV (21:46)
[2024-11-14 21:49] LABS: Blood Urea Nitrogen 16 mg/dl (9-20); Carbon Dioxide 28 mmol/L (22-30); Chloride 101 mmol/L (98-107); Glucose 126 mg/dl (70-99); Sodium 136 mmol/L (135-145); eGFR > 60.00
--- NOTE | 2024-11-14 22:26 | HPS.HSE ---
Addendum entered and electronically signed by Susi Drummond MD 11/14/24 22:58:
see update note for addendum
Original Note:
Family Physician
-
Family Physician: Rick Aguilera
Chief Complaint
-
confusion
History of Present Illness
89 yo male with PMH for prostate cancer, hypertension, hyperlipidemia, kidney stones presented with confusion. Patient unable to provide any history. Attempted to reach , she is not answering the phone. Patient was also seen in the ER
yesterday with confusion.
Workup is negative for acute infection. Admitting for further management
Medical History
Past Medical History
Past Medical History: Reports Other
Additional Past Medical History:
History of nephrolithiasis
Erectile dysfunction
Angiomyolipoma of right kidney
Chronic edema
Aortic atherosclerosis
Atherosclerosis of bilateral carotid arteries
Hypertension
PVC
Right bundle branch block
Prostate cancer
History of Lyme disease hyperlipidemia
Basal cell carcinoma
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
Past Surgical History: Reports Other
Additional Past Surgical History:
Bilateral hip replacement
Tonsillectomy
Lithotripsy
Social History
Unable to obtain full social history at this time due to: Dementia
Family History
Family History: Not pertinent
Allergies / Home Medications
Allergies reflects when Allergies were last updated in [employer].
Home Medications with original date entered in [employer]
Allergy/Medication List:
Allergies
Allergy/AdvReac Type Severity Reaction Status Date / Time
meperidine HCl [From Demerol] Allergy regurgitated Verified 03/17/24 18:23
during
surgery
Penicillins Allergy Hives Verified 03/17/24 18:23
Home Medications
nifedipine 60 mg tablet,extended release 60 mg PO DAILY 09/06/09
atorvastatin 10 mg tablet (Lipitor) 10 mg PO HS 04/29/23
Doxycycline 1 dose PO PRN PRN infection 11/13/24
acyclovir 1 dose PO DAILYPRN PRN antiviral 11/13/24
Review of Systems
-
Unable to obtain full review of systems at this time due to: Dementia
Physical Exam
Vital Signs
Vital Signs
Temp Pulse Resp BP Pulse Ox
98.7 F 94 17 181/100 94
11/14/24 17:48 11/14/24 17:48 11/14/24 17:48 11/14/24 17:48 11/14/24 21:56
Physical Exam
General: Well Developed, Well Nourished and No Apparent Distress
HEENT: NormoCephalic, Moist mucous membranes and Atraumatic
Respiratory: Clear
Cardiac: S1/S2 and Regular Rhythm; No Murmur or Rub
GI: Soft, Non Tender, Non Distended and Normal Bowel Sounds; No Organomegaly
Rectal: Deferred by Provider
Musculoskeletal: No Clubbing, No Cyanosis and No Edema
Skin: No Rash
Neuro: AO x 3 and Nonfocal/grossly intact
Psych: Confused
Laboratory Results
-
11/14/24 21:31
11/14/24 21:31
Laboratory Results
Total Bilirubin Cancelled 11/14/24 21:31
AST Cancelled 11/14/24 21:31
ALT Cancelled 11/14/24 21:31
Alkaline Phosphatase Cancelled 11/14/24 21:31
Data Reviewed
-
Diagnostic Radiology: Report Reviewed by me
Lab Data: Labs Reviewed by me
Impression/Plan
-
# delirium/dementia
-WBCs 12.6
-Head CT with no acute intracranial abnormality. Moderate atrophy. Mild periventricular small vessel ischemic disease
-UA negative
-Chest x-ray with impression of Low lung volumes. Pulmonary interstitial markings at least top normal, cannot exclude interstitial process such as pneumonitis or edema.Homogeneous crescentic soft tissue density overlies the upper midline chest and
lower left neck which may be extrinsic to the patient. Clinical correlation recommended as to any overlying or underlying density.
-Flu and COVID-negative
-Will obtain CT of the chest
-Will obtain B12/folate/TSH, ammonia level in a.m.
-PT, OT, case management consulted
-Obtain EKG
-Psych consult
-neuro consult
-Ativan as needed for agitation
# Hypertension emergency
-Blood pressure elevated in the ER
-Hydralazine as needed
#DVT prophylaxis
-Lovenox
#CODE status
-full code
--- NOTE | 2024-11-14 23:02 | W.PN.UPDATE ---
Update Note
Progress Note Update
I saw and examined the patient.
The MANAGER ETL Agustin's note was reviewed and I agree with the note.
Comment: 89 y/o M, hx of HTN, prostate cancer, HLD, presenting to ER with confusion. Patient currently unable to provide history (received Ativan in ER for combative behavior). We evaluated in ER yesterday and required Ativan and restraints.
decided to take patient home. Reports no oral intake all day today. Today she asked he be brought back to ER for placement.
Physical Exam
General: Well Developed, Well Nourished and No Apparent Distress. Appears chronically ill.
HEENT: NormoCephalic, Moist mucous membranes and Atraumatic
Respiratory: Clear
Cardiac: S1/S2 and Regular Rhythm; No Murmur or Rub
GI: Soft, Non Tender, Non Distended and Normal Bowel Sounds; No Organomegaly
Rectal: Deferred by Provider
Musculoskeletal: No Clubbing, No Cyanosis and No Edema. + leg restraints
Skin: No Rash
Neuro: Awake. Nonfocal/grossly intact
Psych: Confused
Plan:
Delirium vs dementia. I favor dementia give moderate atrophy on CT imaging.
- will check reversible causes including B12, TSH, Ammonia level. CT head otherwise negative for acute pathology. Labs and infectious workup over 2 ER visits unremarkable.
- consult to Neuro and Psych
- check EKG to obtain baseline QTc for any use of anti-psychotics. For now prn Ativan
- IVF
- PT/OT/ST when appropriate
- CM consult
Recent CXR with Pulmonary interstitial markings at least top normal, cannot exclude interstitial process such as pneumonitis or edema. obtain CT chest to further evaluate.
Prn Hydralazine while NPO for BP control
Rest of plan per MANAGER ETL's note.
[2024-11-14 23:22] VITALS: BP 180/107
[2024-11-14] MEDS: APRESOLINE 10 MG IV (23:28)
[2024-11-14 23:40] VITALS: BP 181/89
[2024-11-15] VITALS (10 sets, daily range): BP systolic 153–177; BP diastolic 61–104; BMI 27.0
[2024-11-15] MEDS: NSS 1000 IV (03:30)
[2024-11-15 05:20] LABS: Hematocrit 46.5 % (39.0-52.0); Hemoglobin 15.9 g/dL (13.0-18.0); Mean Corp Hgb Conc. 34.2 g/dL (33.0-37.0); Mean Corpuscular Hgb 30.9 pg (27.0-31.0); Mean Corpuscular Volume 90.3 fL (80.0-94.0); Platelet Count 219 10^3/uL (130-400); Red Blood Cell Count 5.15 10^6/uL (4.70-6.10); Red Cell Dist. Width 13.1 % (11.5-14.5); White Blood Cell Count 10.8 10^3/uL (4.8-10.8)
[2024-11-15 05:31] LABS: Ammonia < 9 umol/L (9-30)
[2024-11-15] MEDS: APRESOLINE 10 MG IV (05:52)
[2024-11-15 06:22] LABS: TSH 4.99 uIU/ml (0.47-4.68)
[2024-11-15 06:58] LABS: Folate > 20.0 ng/ml (2.76-20); Vitamin B12 294 pg/ml (239-931)
--- NOTE | 2024-11-15 07:58 | CON.NEURO ---
Neuro Assessment/Plan
Assessment
Abrupt worsening of cognition with long-standing history of cognitive difficulty
DDX underlying behavioral variant fronto-temporal dementia (bv-FTD), dementia with Lewy bodies
Plan
Check blood work for potential metabolic abnormalities
Although there is a risk with the use of antipsychotic medications, consider initiation of brexpiprazole
Based on severity of the patient's cognition, and longstanding history, would not at this time initiate medication for memory stabilization. Patient is not a candidate for the use of antiamyloid therapies
Case management consultation
DVT prophylaxis
Will follow as needed.
Consultation
Order
Date of Consultation: 11/15/24
Requesting Provider: Hospitalist
Reason for Consult: Change in mental status
Subjective/Objective
Subjective Data
Date of Service: November 15, 2024
Adapted from my prior consultation:
'Date of Service: 12/09/14
79 year old male with hx HTN, high cholesterol came to ER this morning with complaints of memory problems in remembering phone numbers. NO other confusion, headache, speech diff, visual changes, weakness/numbness/tingling, dizziness or difficulty
walking. Denies prior hx similar episodes in the past.
Contacted ex- via phone w/ being told that speech was not normal and that he should go to ED.
IMPRESSIONS/RECOMMENDATIONS:
Abrupt change in mental status
residual change (? or baseline) on exam currently
? new stroke
? baseline dementia
? new seizure (unlikely)
check MRI of brain
check EEG
check blood work
consider OT and ST eval'
From 2009 consultation by prior neurology service:
'DATE/TIME OF CONSULTATION: 10/17/2009
The patient is a 74-year-old male with a history of
hypertension and hyperlipidemia who came into the [facility] because of an episode of loss of balance this afternoon.
The patient had been at the [facility] this morning when
he had loss of balance transiently, and was discharged. He came
back to the [facility] this afternoon because he felt that
he was unsteady on his feet and was leaning to the right. He had no
headache. No double vision or blurry vision. No one-sided weakness
or numbness and no speech difficulty. He also had no vertigo at
that time. His symptoms are improved at the time of my exam. He
had no prior similar episodes, although, he does tell me that he
suffers from an inner ear problem that occasionally causes
vertigo.'
The patient returned to [facility] department on November 13, 2024 due to reported change in mental status. The patient was described as demonstrating behavioral dyscontrol and the patient's was unable to provide assistance to
him. However, the patient's significant other decided to avoid hospitalization and had him return home, despite the need for lorazepam and restraints at that time.
The patient returned to [facility]'s emergency department last evening as she is now requesting him to be placed outside the home.
The patient himself is unable to provide his own medical history.
Objective Data
Vital Signs
Temp Pulse Resp BP Pulse Ox
36.3 C 72 17 160/73 97
11/15/24 07:48 11/15/24 07:48 11/15/24 07:48 11/15/24 07:48 11/15/24 07:48
Lab Results
11/15/24 04:54
11/14/24 21:31
Sodium 136 mmol/L (135-145) 11/14/24 21:31
Potassium mmol/L (3.5-5.1) 11/14/24 21:31
BUN 16 mg/dl (9-20) 11/14/24 21:31
Glucose 126 mg/dl (70-99) H 11/14/24 21:31
Calcium 10.0 mg/dl (8.4-10.2) 11/14/24 21:31
Vitamin B12 294 pg/ml (589-598) 11/15/24 04:54
Patient Allergies
meperidine HCl [From Demerol] Allergy (Verified 03/17/24 18:23)
regurgitated during surgery
Penicillins Allergy (Verified 03/17/24 18:23)
Hives
Review of Systems
-
Unable to obtain full review of systems at this time due to: Dementia
History Source: Patient
All other systems: Reviewed and negative
Neuro: Negative Dizzy or Headache
Physical Exam
-
General: No Apparent Distress and Appears Stated Age
Eyes: Round OU, Breaks Conjunctivae and No Ptosis; Negative Able to visualize OU
HEENT: Anicteric and Moist Mucous Membranes
Neck: Full Range of Motion
Respiratory: No Dyspnea
Cardiac: No JVD
GI: Non-distended
Skin: Unremarkable
Extremities: No Clubbing, No Cyanosis and No Edema
Psych: Negative Intact Judgement/Insight
Extended Neurological Exam
Mood & Affect: Mood Unremarkable and Affect Unremarkable
Attention Span & Concentration: Awake, Interactive, Lethargic, Closes Eyes after Stimulation (After approximately 5 seconds) and Moderate Difficulty with 2 Step Request
Memory: Able to Recall (Own name), Reduced (For recall of current location, month, year) and Unable to Recall Personal History
Tremor: Hand Tremor Absent and Head Tremor Absent
Involuntary Movement: None
Speech: Quality Unremarkable and Mildly Reduced Output
Cranial Nerve II: Left Eye: Pupillary Reactivity Unremarkable and Visual Martinez Intact; Negative Pupillary Size Unremarkable (Pinpoint)
Cranial Nerve II: Right Eye: Pupillary Reactivity Unremarkable and Visual Martinez Intact; Negative Pupillary Size Unremarkable (Pinpoint)
Cranial Nerves III, IV, : Extraocular Movement: Extraocular Movement Full in all Directions
Cranial Nerve VII: Facial Symmetry: Normal Facial Symmetry
Cranial Nerve VIII: Hearing: Negative Unremarkable Hearing to Normal Conversational Volume
Cranial Nerves IX, X: Palate Movement: Palate Elevation Symmetric
Cranial Nerve XI: Shoulder Shrug: Unremarkable
Cranial Nerve XII: Tongue Protusion: Midline
Muscle Strength, Overall: Spontaneously Moves (All extremities)
Muscle Bulk & Tone: Bulk Unremarkable and Tone Unremarkable
Pronator Drift: No Drift in Upper Extremities
Deep Tendon Reflexes: Trace Throughout
Cold Sensation: Unable to Assess
Vibration Sensation: Unable to Assess
Coordination: Klmzil-zbfl-hgsaif Testing Unremarkable and Reaches for Objects without Difficulty
Babinski Sign: Absent Bilaterally
Data Reviewed
-
Labs: Ordered and Report Reviewed
Old Records: Summarized
Medications
-
Active Medications
Generic Name Dose Route Start Last Admin
Trade Name Freq PRN Reason Stop Dose Admin
Acetaminophen 650 mg 11/15/24 01:22
Acetaminophen 325 Mg Tablet PO 12/13/24 01:21
Q4HPRN PRN
mild pain/BURRIS/temp> 100.4F
Bisacodyl 10 mg 11/15/24 01:22
Bisacodyl 10 Mg Rectal Suppository RECTAL 12/13/24 01:21
T25YAID PRN
constipation
Enoxaparin Sodium 40 mg 11/15/24 18:00
Enoxaparin Sodium 40 Mg/0.4 Ml Syringe SC 12/13/24 17:59
QPM SHAMIR
Hydralazine HCl 10 mg 11/14/24 23:25 11/15/24 05:52
Hydralazine 20 Mg/Ml Vial IV 12/12/24 23:24 10 mg
Q6HPRN PRN Administration
hypertension
Sodium Chloride 1,000 mls @ 80 mls/hr 11/15/24 01:22 11/15/24 03:30
Nss IV 1,000 mls
.T30S18E SHAMIR Administration
Lorazepam 1 mg 11/15/24 01:22
Lorazepam 2 Mg/Ml Vial IV 12/13/24 01:21
Q6HPRN PRN
agitation
Polyethylene Glycol 17 grams 11/15/24 01:22
Polyethylene Glycol Powder 17 Grams Packet PO 12/13/24 01:21
DAILYPRN PRN
constipation
Senna/Docusate Sodium 1 tablet 11/15/24 01:22
Docusate W/Senna (Yany-Colace) Tablet PO 12/13/24 01:21
BIDPRN PRN
constipation
Sodium Chloride 0 flush 11/15/24 02:00
Sodium Chloride 0.9% (Flush) Syringe IV 12/13/24 01:59
PER PROTOCOL SHAMIR
Sodium Chloride 0.5 ml 11/15/24 02:00
Nss (Pf) 10 Ml Vial For Ativan 1 Mg Dose IV 12/13/24 01:59
Q6HPRN PRN
IV LORAZEPAM DILUTION
Home Medications
�Medication �Instructions �Recorded
nifedipine 60 mg tablet,extended 60 mg PO DAILY 09/06/09
release
atorvastatin 10 mg tablet (Lipitor) 10 mg PO HS 04/29/23
Doxycycline 1 dose PO PRN PRN infection 11/13/24
acyclovir 1 dose PO DAILYPRN PRN antiviral 11/13/24
Past History
Past History
ED Past Medical History: Cancer (Prostate cancer), HTN, Hypercholesterolemia and Other (Kidney stones, osteoarthritis, vertigo)
ED Past Surgical History: Orthopedic (Bilateral hip replacement) and Other (Lithotripsy 2003)
Social History
Tobacco: Smoker (Cigars)
Alcohol: Occasional
Drug: None
Personal:
Living: alone
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
Family History
Family History: Hypertension and Other (stroke father 70); Negative CAD or Sudden
--- NOTE | 2024-11-15 09:20 | W.PN.HOSP.TC ---
Today's Communication/Plan
-
See plan
Assessment / Plan
Assessment / Plan
Impression:
89 years old male with history of hypertension, dyslipidemia who presents to the emergency room with episodes of confusion and agitation at home.
Differential diagnosis dementia with behavioral disturbances, versus CVA, less likely, versus seizure less likely.
Other conditions:
Dyslipidemia.
Hypertension
Plan:
Altered mental status suspect dementia possibly frontotemporal dementia with behavioral disturbances.
Ongoing workup with no indication of infection or acute metabolic abnormality.
TSH marginally elevated, check free T4.
B12 level marginally low, start B12 supplementation.
MRI of the brain
Neurology input appreciated.
Psychiatry consultation pending. Monitor behavioral trend. Maintain current order for as needed lorazepam. Consider low-dose of Risperdal
Physical/Occupational Therapy evaluation.
Monitor oral intake and wean off IV fluids
Essential hypertension
Dyslipidemia
Confirm outpatient medication list
DVT prophylaxis Lovenox
Full code
Anticipated Discharge: 24 - 48 hours
Subjective/Interval History
-
Date of Service: November 15, 2024
Objective Data
-
Labs:
Laboratory Results
11/14/24 11/15/24
21:31 04:54
WBC 12.6 H 10.8
Hgb 15.1 15.9
Hct 43.7 46.5
Plt Count 229 219
Sodium 136
Potassium
Chloride 101
Carbon Dioxide 28
BUN 16
Creatinine 0.6 L
Glucose 126 H
Calcium 10.0
Total Bilirubin Cancelled
AST Cancelled
ALT Cancelled
Alkaline Phosphatase Cancelled
Vital Signs:
Vital Signs
Temp Pulse Resp BP Pulse Ox
97.3 F 72 17 160/73 97
11/15/24 07:48 11/15/24 07:48 11/15/24 07:48 11/15/24 07:48 11/15/24 07:48
Physical Exam
-
General: Well Developed and No Apparent Distress
HEENT: Normocephalic, Atraumatic and Moist Mucous Membranes
Respiratory: Clear to Auscultation
Cardiac: Regular Rhythm and S1/S2; Negative Murmur, Rub or Gallop
GI: Soft, Nontender, Nondistended and Normal Bowel Sounds; Negative Organomegaly
Rectal: Deferred by Provider
Musculoskeletal: No Clubbing, No Cyanosis and No Edema
Skin: Negative Rash
Neuro: Nonfocal/Grossly Intact
[2024-11-15 10:18] LABS: Free T4 1.36 ng/dl (0.78-2.19)
[2024-11-15] MEDS: VITAMIN B-12 1000 MCG PO (11:11)
--- NOTE | 2024-11-15 11:14 | CHAP ---
At patient's visitor's request, a Bible was delivered to the patient.
--- NOTE | 2024-11-15 11:40 | CON.MD ---
Consultation - Medical
-
patient seen chart reviewed. spoke with nursing . 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 he came to er on nov 13 w cc of mental status change. he was found to be s/w dehydrated but no other cause
found and at 's insistence was dc to home. he returns to again w change in mental status and weakness. he was also having periods of aggression and agitation which were attributed to 'delirium'. says their pcp is not recommended
'rehab' (? snf) the patient when i saw him was very calm and cooperative albeit quite confused. he did not know why he is here. he is oriented to person not to time or exact place. he is not a good historian. he has received ativan as a prn for
agitation and feels it was helpful. .the patient was taking no psychotropic medications and does not have a prior psych hx of depression anxiety or psychosis patient seen by neuro recommending mri to r/o stroke and eeg.
past psych hx none
medical hx htn hld prostate cancer kidney stones oa vertigo overweight ascvd cardiac arrhythmia cat brain without acute changes atrophy and ischemic changes tsh slightly inc await free et4 b12 slightly low started on b12 glucose 126 bp
160/73 chest xray no acute qtc 523 ua ok
substance abuse denied
fh non contributory
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
mse alert but oriented to person only. i asked him who is the president he said he was terrible and i had the sense he did not remember the president's name. patient did make comments which were often irrelevant his mood was cheerful affect ok no
si no overt psychosis insight judgment impaired
dx dementia with behavioral disturbance
recommendation feels the ativan has been helpful. i tried to explain to her the use of risperdal in agitated dementia patients but she does not want risperdal used at this point and asked that we use ativan. at this point patient is quite
pleasant and hopefully that will continue. it is possible if he becomes agitated again she would consider this. would be careful given very prolonged qtc using haldol iv. risperdal or zyprexa would be safest w prolonged qtc. will look in on him
tomorrow.
[2024-11-15] MEDS: ATIVAN 1 MG IV (13:30)
[2024-11-15] MEDS: NSS (PRESERVATIVE FREE) 0.5 ML IV (13:30)
--- NOTE | 2024-11-15 15:27 | CM ---
Initial assessment completed via phone with patient's , Miri # [phone]
EASON form explained to via phone; form dated/timed @ 1450
Per , patient lives in a multilevel home; she has been staying with him; 1st floor set up with bed and bath; stall shower with chair and grab bar
PLOF: patient needed assistance with ADLs; ambulated w/ cane; does not drive
No financial insecurity
No SNF or Home Health utilization history
PT recommends SNF when medically stable for discharge
Plan: referrals sent to SNF for placement
[2024-11-15] MEDS: LOVENOX SC (17:51)
--- NOTE | 2024-11-15 17:58 | PTCARENOTE ---
quick report provided to receiving RN Pat via phone. report tubed.
[2024-11-16] MEDS: ATIVAN 1 MG IV (03:56)
[2024-11-16] MEDS: NSS (PRESERVATIVE FREE) 0.5 ML IV (03:57)
[2024-11-16] MEDS: VITAMIN B-12 1000 MCG PO (07:37)
[2024-11-16 07:59] VITALS: BP 180/89
[2024-11-16 10:53] LABS: Blood Urea Nitrogen 18 mg/dl (9-20); Calcium 9.6 mg/dl (8.4-10.2); Carbon Dioxide 28 mmol/L (22-30); Chloride 101 mmol/L (98-107); Estimated Creatinine Clearance 68 ml/min; Glucose 120 mg/dl (70-99); Magnesium 2.1 mg/dl (1.6-2.3); Sodium 141 mmol/L (135-145); eGFR > 60.00
[2024-11-16] MEDS: TYLENOL 650 MG PO ×2 (11:20→17:44)
[2024-11-16] MEDS: NSS 1000 IV ×2 (11:24→22:09)
--- NOTE | 2024-11-16 12:16 | CM ---
Patient is inpatient, plan is for skilled placement and depending on how patient does with physical therapy plan is for short skilled stay and then home with daughter, if patient has difficulty participating in physical therapy then plan is to home
with [facility] and private caregivers, referrals sent to [facility], [facility], and [facility].
Plan; To follow with patient progress and assist with discharge planning.
--- NOTE | 2024-11-16 12:30 | VNURNOTE ---
Home Health Liaison spoke with patient's primary contact, ex Miri, to discuss [facility] nurse/therapy, visits, schedule and homebound status. She is agreeable and understands that visits at home will be 2-3 x per week to assess and teach medical
management. Explained that visits are intermittent and services are skilled and short-term. Provided Miri w/[facility] contact information. She is aware that [facility] will contact them for start of care in 1-2 days after discharge from .
Miri stated that first choice is for patient to DC to skilled placement facility. This author explained to Miri if patient goes to skilled placement first, the facility would arrange for DME and VN when pt ready to go home. If patient goes home,
Miri requests a hospital bed and PRODUCTION CONTROL ANALYST for resources on private caregivers at home. Miri verbalized understanding.
[facility] liaison will continue to follow DC dispo plans.
[facility] referral in SAVED status in Care Port. If DC home, will need hospital bed ordered.
--- NOTE | 2024-11-16 14:39 | W.PN.HOSP.TC ---
Today's Communication/Plan
-
Monitor for recurrent agitation
Currently on IV lorazepam
Psychiatry following. Options discussed with patient and with suggestion of antipsychotic introduction including Risperdal and Zyprexa
IV hydration
Follow electrolytes
Monitor oral intake
PT eval if possible
Assessment / Plan
Assessment / Plan
Impression:
89 years old male with history of hypertension, dyslipidemia who presents to the emergency room with episodes of confusion and agitation at home.
Differential diagnosis dementia with behavioral disturbances, versus CVA, less likely, versus seizure less likely.
Other conditions:
Dyslipidemia.
Hypertension
Plan:
Altered mental status suspect dementia possibly frontotemporal dementia with behavioral disturbances.
Ongoing workup with no indication of infection or acute metabolic abnormality.
TSH marginally elevated, check free T4.
B12 level marginally low, start B12 supplementation.
MRI of the brain
Neurology and psychiatry input appreciated.
Discussion with patient's at the bedside in the edition to what looks like progressive dementia with behavioral disturbances. Patient's wishes to proceed with placement to half-way facility for rehab hopefully for short period and
then discharged back home. Patient will need appropriate medication with good behavioral control prior to placement. Currently on IV lorazepam which should be transition either to oral or different antipsychotic regimen. Will consider initiation
and titration of Risperdal versus Zyprexa with close monitoring including ECG/QTc interval
Physical/Occupational Therapy evaluation.
Monitor oral intake and wean off IV fluids if sufficient
Essential hypertension
Dyslipidemia
Confirm outpatient medication list
DVT prophylaxis Lovenox
Full code
Anticipated Discharge: 24 - 48 hours
Subjective/Interval History
-
Date of Service: November 16, 2024
Objective Data
-
Labs:
Laboratory Results
11/16/24
10:02
Sodium 141
Potassium 4.0
Chloride 101
Carbon Dioxide 28
BUN 18
Creatinine 0.7
Glucose 120 H
Calcium 9.6
Vital Signs:
Vital Signs
Temp Pulse Resp BP Pulse Ox
97.7 F 97 18 180/89 96
11/16/24 07:59 11/16/24 07:59 11/16/24 07:59 11/16/24 07:59 11/16/24 07:59
I&O
11/15/24 11/16/24 11/17/24
06:59 06:59 06:59
Intake Total 1750 / 1750
Output Total 150 / 150
Balance 1600 / 1600
Physical Exam
-
General: Well Developed and No Apparent Distress
HEENT: Normocephalic, Atraumatic and Moist Mucous Membranes
Respiratory: Clear to Auscultation
Cardiac: Regular Rhythm and S1/S2; Negative Murmur, Rub or Gallop
GI: Soft, Nontender, Nondistended and Normal Bowel Sounds; Negative Organomegaly
Rectal: Deferred by Provider
Musculoskeletal: No Clubbing, No Cyanosis and No Edema
Skin: Negative Rash
Neuro: Nonfocal/Grossly Intact
--- NOTE | 2024-11-16 14:58 | W.PN.UPDATE ---
Update Note
Progress Note Update
patient seen chart reviewed. discussed at length with nursing and with dr ramirez. the patient is markedly different this afternoon than when he was when i saw him yesterday . at that time he was confused but very affable. he has had periods of
agitation since then and at some point this am became relatively unresponsive which is how he was when i saw him this afternoon. i could get him to open his eyes but he rapidly closed them again (left eyelid was a bit more dropping than his right
eye which nursing tells me noted yesterday and says worse today.) patient would have had mri yesterday but he was too combative. he is awaiting mri today but machine down and it won't be done until later today . he did receive one dose
of ativan yesterday and one dose in the early hours of today..this could this be holdover effect...he has not gotten ativan today as nursing holding back although he was quite verbally agressive earlier today. is reluctant to use risperdal bc
of fears re tardive dyskinesia. expresses concern that he appeared to be dehydrated and requests care be taken re hydration. tsh b12 folate are wnl. nursing expressed concern too re aspiration ?cxr will express 's concerns re above to "Gertrudis"ashley. discussed with the risperdal which she will continue to think about but when i discussed with her the black box w elderly patients who have dementia i am afraid that did not help. also discussed hospice with patient's which she
will also consider. this is all very overwhelming for mrs uriostegui which is understandable. ultimately she wishes to be able to take him home with help.
[2024-11-16 15:04] VITALS: BP 179/91
[2024-11-16] MEDS: LOVENOX 40 MG SC (16:39)
[2024-11-16] MEDS: LIDOCAINE 4% PATCH 1 PATCH TOPICAL (21:39)
[2024-11-16 23:00] VITALS: BP 168/77
--- NOTE | 2024-11-17 05:00 | PTCARENOTE ---
Patient confused at baseline. Can be agitated and combative at times, especially with direct care. Requires frequent redirecting and verbal prompts. Bed alarm in use. Increased hourly rounds.
[2024-11-17] MEDS: LIPITOR 10 MG PO (07:15)
[2024-11-17] MEDS: VITAMIN B-12 1000 MCG PO (07:15)
[2024-11-17] MEDS: NSS 1000 IV ×2 (07:16→23:30)
[2024-11-17] MEDS: PROCARDIA XL (EXTENDED RELEASE) 60 MG PO (07:19)
[2024-11-17 07:20] VITALS: BP 195/94
--- NOTE | 2024-11-17 07:48 | W.PN.HOSP.TC ---
Today's Communication/Plan
-
;/
Assessment / Plan
Assessment / Plan
Assessment/plan
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
-Workup negative for infectious, metabolic abnormalities
-Neurology consulted, input appreciated
-Psych consulted input appreciated
-For MRI brain today
-Continue IV lorazepam, with plans to transition to a different antipsychotic regimen
-Prolonged QTc, cannot use Risperdal, Zyprexa
#Essential hypertension
-Start lisinopril 10 mg daily
-IV hydralazine as needed for optimal blood pressure control
#Dyslipidemia
-Continue atorvastatin
CODE STATUS full code
DVT prophylaxis Lovenox
PER psych note ' the patient's wishes to proceed with placement to correction facility for rehab hopefully for short period and then discharged back home'.
Anticipated Discharge: > 48 hours
Subjective/Interval History
-
Date of Service: November 17, 2024
Objective Data
-
Vital Signs:
Vital Signs
Temp Pulse Resp BP Pulse Ox
98.3 F 82 18 195/94 96
11/17/24 07:20 11/17/24 07:20 11/17/24 07:20 11/17/24 07:20 11/17/24 07:20
I&O
11/16/24 11/17/24 11/18/24
06:59 06:59 06:59
Intake Total 1750 / 1750 1480 / 1480
Output Total 150 / 150
Balance 1600 / 1600 1480 / 1480
Review of Systems
-
Unable to obtain full review of systems at this time due to: Dementia
Physical Exam
-
General: No Apparent Distress
Respiratory: Clear to Auscultation
Cardiac: S1/S2
GI: Soft, Nontender and Nondistended
Musculoskeletal: No Edema
Neuro: Awake
Psych: Apparent Dementia
[2024-11-17] MEDS: ATIVAN 1 MG IV ×2 (08:35→17:12)
--- NOTE | 2024-11-17 09:35 | CM ---
Chart reviewed and binder caser received a consult for hospice from physician, binder caser reached out to patient's ex , and hospice options reviewed with patient's ex and she has selected [facility], referral sent through
[employer] to [facility], binder caser requested that Miri, Ex provide POA paperwork for chart.
Plan; Referral sent to [facility].
--- NOTE | 2024-11-17 10:27 | W.PN.UPDATE ---
Update Note
Progress Note Update
I saw and evaluated the patient. I reviewed the resident�s note and agree with findings and plan as documented in the resident�s note.
Gen: NAD, AAOx1
Eyes: EOMI, PERRLA, no scleral icterus.
Neck: supple.
CV: Tachycardic, regular rhythm, +S1/S2, no m/r/g.
Resp: CTAB, no rales, wheezes, or rhonchi.
Abd: +BS, soft, NT, ND
Skin: No rashes.
Neuro: CN 2-12 intact, non-focal.
Psych: agitated
Impression:
89 years old male with history of hypertension, dyslipidemia who presents to the emergency room with episodes of confusion and agitation at home.
Differential diagnosis dementia with behavioral disturbances, versus CVA, less likely, versus seizure less likely.
Other conditions:
Dyslipidemia.
Hypertension
Plan:
Altered mental status suspect dementia possibly frontotemporal dementia with behavioral disturbances.
Ongoing workup with no indication of infection or acute metabolic abnormality.
TSH marginally elevated, check free T4.
B12 level marginally low, start B12 supplementation.
MRI of the brain ordered, hopefully agitation can be controlled enough to obtain the study
Neurology and psychiatry input appreciated.
Discussion with patient's at the bedside by Dr. Marroquin who explained that it appears the patient has progressive dementia with behavioral disturbances. The patient's wishes to proceed with placement to senior living facility for rehab
hopefully for short period and then discharged back home. Patient will need appropriate medication with good behavioral control prior to placement. Currently on IV lorazepam which should be transition either to oral or different antipsychotic
regimen. Cannot start Risperdal/Zyprexa as QTc 512ms (discussed with psych today).
Physical/Occupational Therapy evaluation.
Monitor oral intake and wean off IV fluids if sufficient
Essential hypertension with hypertensive urgency: Start lisinopril 10 mg daily. Start IV Hydralazine PRN. Continue Procardia XL.
Dyslipidemia: cont statin
FULL/Lovenox
--- NOTE | 2024-11-17 11:21 | HOSPNOTE ---
Received a referral for Hospice care for this patient . Chart was reviewed by Dr Sully Larsen. Patient does not meet criteria for home hospice at this time.
[2024-11-17] MEDS: ZESTRIL 10 MG PO (11:25)
[2024-11-17] MEDS: KLONOPIN 0.5 MG PO (11:25)
--- NOTE | 2024-11-17 13:13 | W.PN.UPDATE ---
Update Note
Progress Note Update
Pt seen, reviewed with nursing staff. present. Pt continues to be restless, intermittently agitated,trying unsuccessfully to get out of bed. Staff reports pt was combative with attempted MRI this morning after Ativan 1 mg given- could not be
completed. Pt alert, talking, but unable to give any meaningful information, rambling, cursing at times. is opposed to giving any antipsychotic, due to what she has heard and read about the risks. QTc in 520's. IV Ativan 1 mg having limited
effect. asked to try longer-acting Klonopin. Reviewed risk of falling. reports pt was much better/at baseline- walking with a cane, able to prepare some food- 5 days ago, reportedly had abrupt decline in mental status.
Imp: change in mental status, TME vs progression of Dementia, with intermittent agitation
Rec: will try now-dose of Klonopin 0.5 mg, monitor response. Would consider trying Depakote as alternative to antipsychotics, discussed with , who is reluctant
will follow
--- NOTE | 2024-11-17 14:11 | HOSPNOTE ---
Spoke with this patients ex- Miri this afternoon. She was informed that as per the Hospice medical legal investigator , DR. Sully Larsen .the patient does not meet criteria for Hospice at this time. She verbalized understanding. She would like to bring
the patient home with VN services. Ofelia Callahan CM was informed and will follow up with Miri
[2024-11-17 16:00] VITALS: BP 132/90
[2024-11-17] MEDS: LOVENOX 40 MG SC (16:10)
[2024-11-18] VITALS: BP 153/77
[2024-11-18 07:38] LABS: % Basophils 0.4 % (0-2); % Eosinophils 4.7 % (0-6); % Immature Granulocytes 0.3 % (0-0.5); % Lymphocytes 19.9 % (20.5-51.1); % Monocytes 7.9 % (1.7-9.3); % Neutrophils 66.8 % (42.2-75.2); Absolute Eosinophils 0.5 10^3/uL (0-0.7); Absolute Lymphocytes 1.9 10^3/uL (1.2-3.4); Absolute Monocytes 0.8 10^3/uL (0.1-0.6); Absolute Neutrophils 6.4 10^3/uL (1.4-6.5); Hematocrit 39.4 % (39.0-52.0); Hemoglobin 13.3 g/dL (13.0-18.0); Mean Corp Hgb Conc. 33.8 g/dL (33.0-37.0); Mean Corpuscular Hgb 30.7 pg (27.0-31.0); Mean Platelet Volume 11.1 fL (7.4-10.4); Nucleated Red Blood Cells % 0 % (-); Platelet Count 208 10^3/uL (130-400); Red Blood Cell Count 4.33 10^6/uL (4.70-6.10); White Blood Cell Count 9.6 10^3/uL (4.8-10.8)
--- NOTE | 2024-11-18 07:38 | W.PN.HOSP.TC ---
Today's Communication/Plan
-
;/
Assessment / Plan
Assessment / Plan
Assessment/plan
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
-Workup negative for infectious, metabolic abnormalities
-Neurology consulted, input appreciated
-Psych consulted input appreciated
-MRI initially ordered, but patient cannot stay still for study. Order canceled
-Continue IV lorazepam
-Prolonged QTc, cannot use Risperdal, Zyprexa
-Psych following. One time dose of Klonopin given yesterday
-Started on Depakote today.
#Essential hypertension
-Start lisinopril 10 mg daily
-IV hydralazine as needed for optimal blood pressure control
#Dyslipidemia
-Continue atorvastatin
CODE STATUS full code
DVT prophylaxis Lovenox
See attending's update notes for discussion had with family member today
Anticipated Discharge: 24 - 48 hours
Subjective/Interval History
-
Date of Service: November 18, 2024
Objective Data
-
Labs:
Laboratory Results
11/18/24
06:20
WBC 9.6
Hgb 13.3
Hct 39.4
Plt Count 208
Sodium Pending
Potassium Pending
Chloride Pending
Carbon Dioxide Pending
BUN Pending
Creatinine Pending
Glucose Pending
Calcium Pending
Vital Signs:
Vital Signs
Temp Pulse Resp BP Pulse Ox
97.7 F 80 22 153/77 96
11/18/24 00:00 11/18/24 00:00 11/18/24 00:00 11/18/24 00:00 11/18/24 05:45
I&O
11/17/24 11/18/24 11/19/24
06:59 06:59 06:59
Intake Total 1480 / 1480 1240 / 1240
Output Total 175 / 175
Balance 1480 / 1480 1065 / 1065
Review of Systems
-
Unable to obtain full review of systems at this time due to: Dementia
Physical Exam
-
General: No Apparent Distress
Respiratory: Clear to Auscultation
Cardiac: S1/S2
GI: Soft, Nontender and Nondistended
Musculoskeletal: No Edema
Neuro: Awake
Psych: Apparent Dementia
[2024-11-18 07:56] VITALS: BP 178/98
[2024-11-18 07:56] LABS: Blood Urea Nitrogen 15 mg/dl (9-20); Calcium 8.8 mg/dl (8.4-10.2); Carbon Dioxide 24 mmol/L (22-30); Chloride 106 mmol/L (98-107); Estimated Creatinine Clearance 80 ml/min; Glucose 107 mg/dl (70-99); Potassium 3.5 mmol/L (3.5-5.1); Sodium 140 mmol/L (135-145); eGFR > 60.00
[2024-11-18] MEDS: ATIVAN 1 MG IV ×2 (09:07→16:53)
[2024-11-18] MEDS: VITAMIN B-12 1000 MCG PO (09:08)
[2024-11-18] MEDS: PROCARDIA XL (EXTENDED RELEASE) 60 MG PO (09:08)
[2024-11-18] MEDS: LIPITOR 10 MG PO (09:08)
[2024-11-18] MEDS: ZESTRIL 10 MG PO (09:09)
[2024-11-18] MEDS: TYLENOL 650 MG PO ×2 (10:45→17:21)
--- NOTE | 2024-11-18 11:46 | W.PN.UPDATE ---
Update Note
Progress Note Update
I saw and evaluated the patient. I reviewed the resident�s note and agree with findings and plan as documented in the resident�s note.
Pt mumbing.
Gen: NAD, AAOx1
Eyes: EOMI, PERRLA, no scleral icterus.
Neck: supple.
CV: RRR, +S1/S2, no m/r/g.
Resp: CTAB anteriorly, no rales, wheezes, or rhonchi.
Abd: +BS, soft, NT, ND
Skin: No rashes.
Neuro: CN 2-12 intact, non-focal.
Psych: mostly calm
Impression:
89 years old male with history of hypertension, dyslipidemia who presents to the emergency room with episodes of confusion and agitation at home.
Differential diagnosis dementia with behavioral disturbances, versus CVA, less likely, versus seizure less likely.
Other conditions:
Dyslipidemia.
Hypertension
Plan:
Altered mental status suspect dementia possibly frontotemporal dementia with behavioral disturbances.
Ongoing workup with no indication of infection or acute metabolic abnormality.
TSH marginally elevated, check free T4.
B12 level marginally low, start B12 supplementation.
MRI of the brain ordered, hopefully agitation can be controlled enough to obtain the study
Neurology and psychiatry input appreciated.
11/17/24: Discussion with patient's at the bedside by Dr. Marroquin who explained that it appears the patient has progressive dementia with behavioral disturbances. The patient's wishes to proceed with placement to nursing home facility
for rehab hopefully for short period and then discharged back home. Patient will need appropriate medication with good behavioral control prior to placement. Currently on IV lorazepam which should be transition either to oral or different
antipsychotic regimen. Cannot start Risperdal/Zyprexa as QTc 512ms (discussed with psych today).
11/18/24: I had a very belen and extensive discussion with the patient's explaining that the patient's current change in mentation is due to dementia. There is no toxin or metabolic disturbance at this time. I do not feel that MRI of the brain
will be obtainable due to the fact that he cannot stay still. I also do not think this will global director air and climate change. I do recommend allowing the patient to have Depakote as per psychiatry's recommendation. Currently discussing the case with psychiatry
and neurology as well as case management. As per case management a referral has been sent to hospice. This is completely appropriate in this 89-year-old male with progressive/advanced dementia.
Physical/Occupational Therapy evaluation.
Monitor oral intake and wean off IV fluids if sufficient
Essential hypertension with hypertensive urgency: Started on lisinopril 10 mg daily. Cont IV Hydralazine PRN. Continue Procardia XL.
Dyslipidemia: cont statin
FULL/Lovenox
--- NOTE | 2024-11-18 11:58 | W.PN.NEURO.1 ---
Today's Communication / Plan
-
Continue vitamin B12 replacement
Although there is a risk with the use of antipsychotic medications, consider initiation of brexpiprazole, or similar agent
Neuro Assessment/Plan
Assessment
Abrupt worsening of cognition with long-standing history of cognitive difficulty
DDX underlying behavioral variant fronto-temporal dementia (bv-FTD), dementia with Lewy bodies
With newly discovered vitamin B12 deficiency
Plan
Continue vitamin B12 replacement
Although there is a risk with the use of antipsychotic medications, consider initiation of brexpiprazole, or similar agent
Based on severity of the patient's cognition, and longstanding history, would not at this time initiate medication for memory stabilization. Patient is not a candidate for the use of antiamyloid therapies
Case management consultation
DVT prophylaxis
Will follow as needed.
Subjective/Objective
Subjective Data
Date of Service: November 18, 2024
Objective Data
Vital Signs
Temp Pulse Resp BP Pulse Ox
36.4 C 86 24 178/98 95
11/18/24 07:56 11/18/24 07:56 11/18/24 07:56 11/18/24 07:56 11/18/24 07:56
Lab Results
11/18/24 06:20
11/18/24 06:20
Sodium 140 mmol/L (135-145) 11/18/24 06:20
Potassium 3.5 mmol/L (3.5-5.1) 11/18/24 06:20
BUN 15 mg/dl (9-20) 11/18/24 06:20
Glucose 107 mg/dl (70-99) H 11/18/24 06:20
Calcium 8.8 mg/dl (8.4-10.2) 11/18/24 06:20
Vitamin B12 294 pg/ml (239-931) 11/15/24 04:54
Patient Allergies
meperidine HCl [From Demerol] Allergy (Verified 03/17/24 18:23)
regurgitated during surgery
Penicillins Allergy (Verified 03/17/24 18:23)
Hives
Data Reviewed
-
Labs: Report Reviewed
Reviewed with: Physician
Old Records: Summarized
[2024-11-18] MEDS: DEPAKOTE SPRINKLE 125 MG PO (12:06)
--- NOTE | 2024-11-18 13:54 | W.PN.UPDATE ---
Update Note
Progress Note Update
Pt seen with present. Pt lying across bed, confused and verbally agitated, intermittently yelling out 'I don't care'... 'All right!' not relevant to the conversation. Discussed medication options for agitation, agreed to trial of
Depakote; she continues to oppose antipsychotic medications. She states Ativan and the one-time dose of Klonopin have helped, although nursing staff note limited benefit for agitation.
Imp: change in mental status, TME vs progression of Dementia, with intermittent agitation
Rec: Will try Depakote as alternative to antipsychotics, reviewed risks vs benefits with pt's
will follow
--- NOTE | 2024-11-18 14:25 | CM ---
Addendum entered by Ofelia Callahan 11/18/24 16:56:
Patient's spouse has declined skilled placement, want's home with [facility] and pallative care, along with equipment.
Original Note:
Patient has been denied hospice, plan is to home with [facility] and palliative care v's skilled placement at [facility]. Patient's ex to make final decision on plan for patient. Asked patient's ex- for POA paperwork again.
Plan; Home with ex- or skilled placement at [facility].
[2024-11-18] MEDS: LOVENOX SC (15:52)
--- NOTE | 2024-11-18 17:54 | W.PN.UPDATE ---
Update Note
Progress Note Update
Notified by FRANCIS re:temp 102 F Axillary.
-check COVID/flu (previously NEG but could easily have contracted either since last test)
-check portable AP CXR
-check BCxs
-trend fever curve
[2024-11-18 18:41] LABS: COVID-19 Antigen Negative (Negative)
[2024-11-18] MEDS: DEPAKOTE SPRINKLE PO ×2 (19:26→19:43)
[2024-11-18 23:38] VITALS: BP 152/82
[2024-11-19] MEDS: ATIVAN 1 MG IV ×2 (00:40→07:13)
[2024-11-19] MEDS: NSS (PRESERVATIVE FREE) 0.5 ML IV (07:13)
[2024-11-19 07:35] VITALS: BP 177/97
[2024-11-19] MEDS: VITAMIN B-12 1000 MCG PO (10:13)
[2024-11-19] MEDS: PROCARDIA XL (EXTENDED RELEASE) PO ×2 (10:13→10:24)
[2024-11-19] MEDS: ZESTRIL 10 MG PO (10:13)
[2024-11-19] MEDS: LIPITOR 10 MG PO (10:13)
[2024-11-19] MEDS: DEPAKOTE SPRINKLE 125 MG PO ×2 (10:13→21:46)
--- NOTE | 2024-11-19 10:22 | VNURNOTE ---
[facility] liaison spoke to patient's contact, Miri. Confirmed she intends on taking patient home. Offered a bedside commode as well, Miri declined, stating master bath is close within bedroom. Explained to Miri that it may take a few days for
hospital bed to be approved and delivered. [employer] company will contact her for set up. She verbalized understanding. Rx, clinicals for hospital bed faxed to [facility] at [facility].
[2024-11-19 10:31] VITALS: BP 168/100
[2024-11-19] MEDS: APRESOLINE 10 MG IV ×2 (13:41→17:48)
[2024-11-19 14:41] LABS: Procalcitonin 0.05 ng/ml (0.0-0.25)
[2024-11-19 15:00] VITALS: BP 173/87
--- NOTE | 2024-11-19 16:41 | W.PN.HOSP.TC ---
Today's Communication/Plan
-
Hospice consultation
Discharge planning for home hospice.
Assessment / Plan
Assessment / Plan
Impression:
89 years old male with history of hypertension, dyslipidemia who presents to the emergency room with episodes of confusion and agitation at home.
Dementia with behavioral disturbances
Other conditions:
Dyslipidemia.
Hypertension
Plan:
Altered mental status suspect dementia possibly frontotemporal dementia with behavioral disturbances.
Ongoing workup with no indication of infection or acute metabolic abnormality.
TSH marginally elevated, check free T4.
B12 level marginally low, start B12 supplementation.
Neurology and psychiatry input appreciated.
Initiated on Depakote for behavioral disturbances
Ongoing workup with no clinical evidence for infection, bolus abnormalities or other correctable sources.
Patient remains with fluctuating mentation, erratic oral intake with risk for dehydration and infection
Discussed with patient's /POA. Respecting patient wishes to pass at home, priority is for arrange home hospice.
Also discussed CODE STATUS. She prefers him to stay full code while in the hospital ' to keep him alive and bringing home to pass'
Hospice consult placed
Patient is in need of a semi-electric hospital bed with foam mattress due to the need to elevate head of bed above 30 degrees to prevent aspiration
and to facilitate frequent repositioning to prevent bed ulcers and pressure points.
Essential hypertension
Home regimen with nifedipine and lisinopril.
BP suboptimally controlled given erratic oral intake including medications. Continue IV hydralazine for now.
Anticipated Discharge: 24 - 48 hours
Subjective/Interval History
-
Date of Service: November 19, 2024
Objective Data
-
Vital Signs:
Vital Signs
Temp Pulse Resp BP Pulse Ox
97 F 75 20 198/83 95
11/19/24 07:35 11/19/24 13:41 11/19/24 07:35 11/19/24 13:41 11/19/24 07:35
I&O
11/18/24 11/19/24 11/20/24
06:59 06:59 06:59
Intake Total 1240 / 1240
Output Total 175 / 175
Balance 1065 / 1065
Physical Exam
-
General: No Apparent Distress
Respiratory: Clear to Auscultation
Cardiac: S1/S2
GI: Soft, Nontender and Nondistended
Musculoskeletal: No Edema
Neuro: Awake
Psych: Apparent Dementia
--- NOTE | 2024-11-19 16:43 | CM ---
per CM referral, resent hospice referral via [facility].
--- NOTE | 2024-11-19 17:12 | W.PN.UPDATE ---
Update Note
Progress Note Update
patient seen chart reviewed. spoke with nursing. the patient is calm right now watching the [facility] arrive in [place]. i spoke at length with his who asked some questions about his current medications which i reported to her. wants
her to come home [facility]. she has ordered a hospital bed for him. she also says she wants her to be a full code and to be on hospice which is a contradiction in terms and i told her so. i told her it was unlikely he could be dc
tonite probably we could not find an ambulance. will increase depakote to 125 mg tid. i doubt he would mount a therapeutic level on 125 mg bid and at this moment he is becoming agitated and is yelling and cursing at staff. he also has an ativan
prn. does not want him to get atypicals. .
[2024-11-19] MEDS: LOVENOX 40 MG SC (17:17)
[2024-11-19] MEDS: TYLENOL 650 MG PO (17:47)
--- NOTE | 2024-11-19 17:51 | HOSPNOTE ---
Addendum entered by Montse Rankin RN 11/20/24 08:43:
Patient and ex do not wish for hospice at this time. They wish to proceed with Palliative care and VN services. Their hope is that he can get a little stronger. They do know they will need hospice in the future and Karolina provided her card for
when they are ready. Ex is looking to bring him home today. CM is being updated.
Original Note:
Referral received. Will speak to family tomorrow about hospice services. More information to follow.
[2024-11-19 23:30] VITALS: BP 162/100
[2024-11-20 03:30] VITALS: BP 150/92
[2024-11-20 07:00] VITALS: BP 112/90
[2024-11-20] MEDS: PROCARDIA XL (EXTENDED RELEASE) PO (08:21)
[2024-11-20] MEDS: DEPAKOTE SPRINKLE 125 MG PO ×2 (08:23→15:57)
[2024-11-20] MEDS: VITAMIN B-12 1000 MCG PO (08:23)
[2024-11-20] MEDS: ZESTRIL 10 MG PO (08:24)
[2024-11-20] MEDS: LIPITOR 10 MG PO (08:24)
[2024-11-20 09:17] LABS: % Basophils 0.3 % (0-2); % Eosinophils 2.7 % (0-6); % Immature Granulocytes 0.3 % (0-0.5); % Lymphocytes 20.3 % (20.5-51.1); % Monocytes 7.7 % (1.7-9.3); % Neutrophils 68.7 % (42.2-75.2); Absolute Eosinophils 0.2 10^3/uL (0-0.7); Absolute Lymphocytes 1.8 10^3/uL (1.2-3.4); Absolute Monocytes 0.7 10^3/uL (0.1-0.6); Absolute Neutrophils 6.2 10^3/uL (1.4-6.5); Hematocrit 44.3 % (39.0-52.0); Hemoglobin 14.8 g/dL (13.0-18.0); Mean Corp Hgb Conc. 33.4 g/dL (33.0-37.0); Mean Corpuscular Hgb 30.8 pg (27.0-31.0); Mean Corpuscular Volume 92.1 fL (80.0-94.0); Mean Platelet Volume 9.8 fL (7.4-10.4); Nucleated Red Blood Cells % 0 % (-); Platelet Count 328 10^3/uL (130-400); Red Blood Cell Count 4.81 10^6/uL (4.70-6.10); Red Cell Dist. Width 12.9 % (11.5-14.5); White Blood Cell Count 9.1 10^3/uL (4.8-10.8)
--- NOTE | 2024-11-20 09:28 | VNURNOTE ---
[facility] Liaison confirmed with [facility] at [facility] bed was delivered to home last night. ZONIA Gilbert updated.
[2024-11-20 09:57] LABS: Blood Urea Nitrogen 18 mg/dl (9-20); Calcium 9.1 mg/dl (8.4-10.2); Carbon Dioxide 27 mmol/L (22-30); Chloride 102 mmol/L (98-107); Estimated Creatinine Clearance 80 ml/min; Glucose 113 mg/dl (70-99); Potassium 3.4 mmol/L (3.5-5.1); Sodium 141 mmol/L (135-145); eGFR > 60.00
--- NOTE | 2024-11-20 12:06 | W.PN.UPDATE ---
Update Note
Progress Note Update
patient seen chart reviewed. discussed with dr ramirez. unclear whether patient will be dc today. he was largely non verbal when seen by this software writer today. he was listing in the bed and with the help of his nurse we repositioned him in to a more
comfortable position. he was generally cooperative this am but has been requiring two prn's of ativan during the course of recent days. have ordered a depakote level for tuesday am. would increase to therapeutic levels. kd does not wish patient
to have atypicals. will also order a swallowing test as night staff very worried re aspiration. will follow
--- NOTE | 2024-11-20 12:31 | CM ---
Chart reviewed and case management coordinator met with patient and spoke with patient's ex by phone, plan is for patient to return to home today with [facility] and palliative care. Patient had a hospital bed delivered yesterday to home, ambulance transport to be
set up today.
Plan; Home with [facility], and [facility], referral sent in [employer].
--- NOTE | 2024-11-20 13:18 | W.DS.TRANS ---
DC Summary - Neuro Intensivist Physician
-
Discharge Instructions:
Discharge Diagnosis/Procedures Dementia with behavioral disturbances.
Aspiration risk.
HTN
Diet Regular
Instructions:
Stand-Alone Forms:
Changes to Home Medications: Yes
Discharge Medications:
DC Medications w/original date entered in [employer]
atorvastatin 10 mg tablet 10 mg PO DAILY High Cholesterol 11/15/24
glucosamine sulf dipot chlr,msm,chond 550 mg-C 30 mg-raina 1 mg capsule (Glucosamine Chondroitin) 1 cap PO Daily Supplement 11/15/24
nifedipine 60 mg tablet,extended release 24 hr 60 mg PO DAILY Blood Pressure 11/15/24
omega-3 fatty acids-fish oil 684 mg-1,200 mg capsule,delayed release 1 cap PO DAILY Supplement 11/15/24
therapeutic multivitamin 1 tab PO DAILY Supplement 11/15/24
ubiquinone 90 mg disintegrating tablet 90 mg PO Daily Supplement 11/15/24
vitamin B complex 1 tab PO DAILY Supplement 11/15/24
divalproex 125 mg capsule,delayed release sprinkle 125 mg PO TID #90 caps 11/20/24
Home Medication Changes
Depakote initiated
Pending Results: No
--- NOTE | 2024-11-20 14:16 | PTOTSP ---
Dysphagia Evaluation
Patient presents with signs concerning for moderate oral stage dysphagia, unspecified pharyngeal dysphagia, and concern for aspiration with thin liquids due to overt/prolonged cough response. Dysphagia is likely due to frontotemporal dementia. CXR
11/18 concerning for possible PNA.
Video swallow study would be appropriate to assess oral/pharyngeal swallow and r/o silent aspiration with thickened liquids. However, patient agitation likely a barrier. Per MD, POA does not want any further testing.
Diet options pending goals of care include:
1. IDDSI Level 4 Puree, IDDSI Level 2 Mildly Thick Liquids to try and reduce risk for choking and coughing with intake
vs.
2. IDDSI Level 5 Minced/Moist, IDDSI Level 0 Thin liquids for comfort understanding risks/complications of aspiration
Discussed information above with physician.
Strategies:
1. Full supervision and assistance
2. Medications: crushed in puree
3. Strategies: careful spoon feeding, small sips, slow rate, oral suctioning as needed
4. Oral care 3x daily with suctioning
5. Dysphagia tx f/u at home pending goals of care
[2024-11-20 15:30] VITALS: BP 175/100
[2024-11-20] MEDS: APRESOLINE 10 MG IV (15:57)
[2024-11-20 16:23] VITALS: BP 149/79
== END 2024-11-20 17:30 | disposition home health service (06) | DRG 884 ==
LOC: 4 WEST ACU 18:12
PROVIDERS: Internal Medicine; Registered Nurse; Student in an Organized Health Care Education/Training Program; ADMITTING PHYSICIAN Internal Medicine; ATTENDING PHYSICIAN Internal Medicine; CONSULT PHYSICIAN Psychiatry & Neurology Neurology; EMERGENCY PHYSICIAN Emergency Medicine; FAMILY PHYSICIAN Internal Medicine; OTHER PHYSICIAN Psychiatry & Neurology Psychiatry
DX: F03.918 Unspecified dementia, unspecified severity, with other behavioral disturbance (principal); I16.1 Hypertensive emergency; J98.11 Atelectasis; I10 Essential (primary) hypertension; Z85.46 Personal history of malignant neoplasm of prostate; Z87.442 Personal history of urinary calculi; E78.00 Pure hypercholesterolemia, unspecified; N52.9 Male erectile dysfunction, unspecified; Z86.018 Personal history of other benign neoplasm; I70.0 Atherosclerosis of aorta; I45.10 Unspecified right bundle-branch block; Z86.19 Personal history of other infectious and parasitic diseases; Z85.820 Personal history of malignant melanoma of skin; Z96.643 Presence of artificial hip joint, bilateral; Z88.0 Allergy status to penicillin; F17.290 Nicotine dependence, other tobacco product, uncomplicated; R62.7 Adult failure to thrive; Z11.52 Encounter for screening for COVID-19; F03.911 Unspecified dementia, unspecified severity, with agitation; M19.90 Unspecified osteoarthritis, unspecified site; Z82.3 Family history of stroke
CPT/HCPCS: 70450; 71045; 71250; 80048; 80053; 81003; 82140; 82607; 82746; 83605; 83735; 84145; 84439; 84443; 85025; 85027; 87040; 87502; 87811; 92610; 93005; 96361; 96374; 99284; 99285

== ENCOUNTER 2024-11-30 21:06 | Inpatient (IN) | payer MEDICARE, SELFPAY ==
[2024-11-30 17:36] VITALS: BP 137/71
--- NOTE | 2024-11-30 18:00 | ED.GENMED ---
History of Present Illness
General
Chief Complaint: DVT/Possible Blood Clot
Source: patient
Exam Limitations: none
Time Seen by Provider: 11/30/24 17:39
Nursing documentation reviewed up to this point in time: agreed with
History of Present Illness
History of Present Illness:
89-year-old male with history as noted significant for dementia presents with his nephew from home for evaluation of left leg swelling. Patient is unable to meaningfully restrain history due to dementia. His nephew says that over the past week or
so they have noticed swelling in his left leg and he has been complaining of some mild pain in his left leg. No trauma or falls. Saw primary doctor who referred to the ER to be evaluated to rule out DVT. No breathing issues noted or any other
issues. He is not on any blood thinners.
Past History
Past History
ED Past Medical History: Cancer (Prostate cancer), HTN, Hypercholesterolemia and Other (Kidney stones, osteoarthritis, vertigo)
ED Past Surgical History: Orthopedic (Bilateral hip replacement) and Other (Lithotripsy 2003)
Social History
Tobacco: Smoker (Cigars)
Alcohol: Occasional
Drug: None
Personal:
Living: alone
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
Family History
Family History: Hypertension and Other (stroke father 70); Negative CAD or Sudden
Review of Systems
Review of Systems
Unable to obtain full review of systems at this time due to: dementia
All Other Systems: Not applicable
Phy Exam
Physical Exam
Physical Exam:
General: Awake, alert, not in acute distress
Head: Normocephalic, atraumatic
Eyes: Conjunctiva normal
Throat: Airway intact, handling secretions
Neck: Trachea midline
Lungs: Clear to auscultation bilaterally, no wheezing, rales, rhonchi
Heart: Regular rate and rhythm, no murmurs, gallops, or rubs
Neuro: No gross deficit
Skin: no rash
Extremities: Patient does have +1 edema in the left lower extremity, no edema in the right lower extremity; no erythema or warmth of the left lower extremity; strong distal pulse left lower extremity; no significant calf tenderness
Scores
Heart Failure Risk
Heart Failure Risk Score: Not Applicable
Heart Score for Chest Pain Patients
STEMI patient?: Not applicable
Withdrawal Assessment of Alcohol
Withdrawal Assessment Completed?: Not applicable
Course
Orders/Labs/Results
Orders:
Orders
11/30/24 17:55
US Periph Venous LOWER Ext LT Urgent
Comment:
Reason For Exam: LLE swelling
11/30/24 19:01
Heparin 5,800 units IV NOW STA
Pharmacy Request to Place See Dose Instructions PO NOW STA
Discontinue all Active Warfarin orders?: Yes
Nursing to Place Non Medication Order As Directed
Physician Order: PTT 6 hours after initial start of Heparin infusion
11/30/24 19:15
Heparin [id number] Units/250 ml 25,000 units in 250 ml IV PER PROTOCOL
Weight to be used for heparin protocol in kilograms (kg):: 72
Protocol:: DVT/PE
PTT Goal Range to be used:: PTT 73 to 111 seconds
Order type:: Initial
INITIAL Infusion Dose (UNITS/KG/hr) & then follow protocol:: 18 units/kg/hr
Infusion Dose in UNITS/hr & then follow protocol (UNITS/hr):: 1,300
INFUSION RATE in mL/hr & then follow protocol (mL/hr):: 13
For DVT/PE algorithm, re-bolus for low PTT?: Yes
PTT less than or equal to 64 seconds:: Re-bolus 80 units/kg (max 10,000units). Increase by 300 units/hr
(+ 3mL/hr)
PTT 64.1 to 72.9 seconds:: Re-bolus 40 units/kg (max 5,000 units). Increase by 100 units/hr
(+ 1mL/hr)
PTT 73 to 111 seconds:: Target Range. No change in rate.
PTT 111.1 to 130.9 seconds:: Decrease rate by 100 units/hr (- 1 mL/hr)
PTT 131 to 199.9 seconds:: HOLD for 1 hr. Then decrease by 200 units/hr (- 2mL/hr)
PTT greater than or equal to 200 seconds:: HOLD for 2 hrs & Notify Provider. Then decrease by 300 units/hr
(- 3mL/hr)
Lab follow-up:: Each change, PTT q6h until 2 consecutive are therapeutic. Then
PTT daily.
11/30/24 19:51
Complete Blood Count/With Diff Urgent
Comprehensive Metabolic Panel Urgent
PTT Urgent
Prothrombin Time Urgent
11/30/24 20:[address] See Dose Instructions IV DIRECTED
Abnormal Lab Results
11/30/24
19:51
RBC 4.07 L 10^6/uL
(4.70-6.10)
Hgb 12.5 L g/dL
(13.0-18.0)
Hct 37.6 L %
(39.0-52.0)
Abs Immat Gran (auto) 0.1 H 10^3/uL
(0-0.05)
Absolute Monos (auto) 0.9 H 10^3/uL
(0.1-0.6)
11/30/24 19:51
Vital Signs
Initial and Last Documented VS:
Initial Vital Signs
Temp Pulse Resp BP Pulse Ox
36.4 C 77 20 137/71 94
11/30/24 17:36 11/30/24 17:36 11/30/24 17:36 11/30/24 17:36 11/30/24 17:36
Last Documented Vital Signs
Temp Pulse Resp BP Pulse Ox
36.4 C 77 20 137/71 94
11/30/24 17:36 11/30/24 17:36 11/30/24 17:36 11/30/24 17:36 11/30/24 17:36
MDM/Problems Addressed
Differential Diagnosis Includes:
DVT, dependent edema, Maier's cyst, less likely cellulitis
MDM/Problems Addressed:
89-year-old male presents for evaluation of left lower extremity swelling in the absence of trauma. Sent for evaluation for DVT. Vitals and exam as above. Will check ultrasound of the left lower extremity. Reassess after the above.
Ultrasound called back by radiology: Positive for acute occlusive DVT in the left femoral, popliteal, posterior tibial veins. Given extent of clot will start on IV heparin and admit for continued management. Check labs before heparin infusion.
Updated patient, nephew, . Discussed with hospitalist.
Chronic conditions affecting care:
Dementia
*Radiology
Radiology exam reviewed: radiology read reviewed
*Pulse Oximetry
Patient hypoxic: no
*Critical Care Note
Total Time (30-74mins, 75-104mins- exclusive of procedures): Not Applicable
Data Reviewed
Source: patient, family (Nephew) and ambulance crew
Patient Management
Discussion with other providers: Hospitalist (Discussed with hospitalist) and Radiologist (Discussed with radiologist)
Escalation/DeEscalation of care consider admission/obs:
Admission indicated
ED Attending Note
-
Portions of this chart may have been created with voice recognition software.� Occasional wrong word or��sound alike� substitutions may have occurred due to the inherent limitations of voice recognition software.
Discharge Plan
Departure
Patient Disposition: Admit
Date of Disposition: 11/30/24
Time of Disposition: 20:04
Admit to doctor: Mane
Presentation/result/management discussed w/ accepting MD/DO: Hospitalist
Discharge Problem:
DVT (deep venous thrombosis)
Prescriptions:
No Action
atorvastatin 10 mg Tablet
10 mg PO DAILY
therapeutic multivitamin Tablet
1 tab PO DAILY
nifedipine 60 mg Tablet Extended Release 24hr
60 mg PO DAILY
vitamin B complex Tablet
1 tab PO DAILY
omega-3 fatty acids-fish oil 684-1,200 mg Capsule,Delayed Release(Dr/Ec)
1 cap PO DAILY
ubiquinone 90 mg Tablet,Disintegrating
90 mg PO Daily
Glucosamine Chondroitin 550-30-1 mg Capsule
1 cap PO Daily
divalproex 125 mg Capsule, Delayed Rel Sprinkle
125 mg PO TID Qty: 90 0RF
quetiapine [Seroquel] 25 mg Tablet
25 mg PO DAILY@1800
Referrals:
Rick Aguilera MD [Family Provider] -
Interventions
Interventions:
*Risk Screen - Suicide Last Done: 11/30/24 17:36
*General Assessment Last Done: 11/30/24 17:36
*Neglect/Abuse Screening Last Done: 11/30/24 17:36
*ED COVID-19 Vaccine History Last Done: 11/30/24 18:43
ED- Cardiac Assessment Last Done: 11/30/24 18:43
ED- Pulmonary Assessment Last Done: 11/30/24 18:43
ED-Peripheral Vascular Assessment Last Done: 11/30/24 18:43
ED-Skin Assessment Last Done: 11/30/24 18:43
Discharge Date and Time
Print Language: HUNGARIAN
[2024-11-30 20:00] LABS: % Basophils 0.3 % (0-2); % Eosinophils 5.9 % (0-6); % Immature Granulocytes 0.5 % (0-0.5); % Lymphocytes 24.9 % (20.5-51.1); % Monocytes 8.1 % (1.7-9.3); % Neutrophils 60.3 % (42.2-75.2); Absolute Eosinophils 0.6 10^3/uL (0-0.7); Absolute Immature Granulocytes 0.1 10^3/uL (0-0.05); Absolute Lymphocytes 2.6 10^3/uL (1.2-3.4); Absolute Monocytes 0.9 10^3/uL (0.1-0.6); Absolute Neutrophils 6.3 10^3/uL (1.4-6.5); Hematocrit 37.6 % (39.0-52.0); Hemoglobin 12.5 g/dL (13.0-18.0); Mean Corp Hgb Conc. 33.2 g/dL (33.0-37.0); Mean Corpuscular Hgb 30.7 pg (27.0-31.0); Mean Corpuscular Volume 92.4 fL (80.0-94.0); Mean Platelet Volume 9.2 fL (7.4-10.4); Nucleated Red Blood Cells % 0 % (-); Platelet Count 323 10^3/uL (130-400); Red Blood Cell Count 4.07 10^6/uL (4.70-6.10); Red Cell Dist. Width 12.9 % (11.5-14.5); White Blood Cell Count 10.5 10^3/uL (4.8-10.8)
[2024-11-30 20:13] LABS: ALT (SGPT) 16 U/L (0-50); APTT 33.6 Sec (23.4-35.0); AST (SGOT) 18 U/L (17-59); Albumin 3.4 g/dl (3.5-5.0); Alkaline Phosphatase 87 U/L (38-126); Blood Urea Nitrogen 13 mg/dl (9-20); Calcium 8.9 mg/dl (8.4-10.2); Carbon Dioxide 28 mmol/L (22-30); Chloride 102 mmol/L (98-107); Glucose 108 mg/dl (70-99); INR 1.14; PT 14.9 Sec (11.4-14.6); Sodium 135 mmol/L (135-145); Total Bilirubin 0.7 mg/dl (0.2-1.3); Total Protein 5.9 g/dl (6.3-8.2); eGFR > 60.00
--- NOTE | 2024-11-30 20:15 | HPS.HSE ---
Family Physician
-
Family Physician: Rick Aguilera
Chief Complaint
-
Left leg swelling, pain
History of Present Illness
89-year-old male with history of dementia came in with his nephew from home due to evaluation of left leg swelling over the past week they have noticed his left leg has been swollen and has been complaining of some mild pain. They deny any trauma
or falls. He saw his PCP today who referred him to the ER for evaluation to rule out DVT. He has denied chest pain, shortness of breath, cough, palpitations, fever, chills, abdominal pain, nausea, vomiting, diarrhea, urinary symptoms. While in
the ER he was noted to have an occlusive thrombus of the left femoral, popliteal, PT veins and was started on IV heparin infusion. The patient had a recent admission to [facility] 08/29/2025 secondary to dementia with agitation and confusion at that time
he had prolonged QTc was limited with certain medications his did not want atypicals. He was started on Depakote on 11/18/2024 and did well with a eventual dose of Depakote 125 mg p.o. 3 times daily.
His past medical history of dementia agitation, confusion, prostate cancer, renal calculi status post lithotripsy, HTN, HLD, osteoarthritis, vertigo, bilateral hip replacement, cigar smoker
Medical History
Past Medical History
Past Medical History: Reports Other
Additional Past Medical History:
Dementia with agitation/confusion admitted to 02/26/2025
Hypertension
PVC
Right bundle branch block
Prostate cancer
History of Lyme disease
Hyperlipidemia
Basal cell carcinoma
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
History of nephrolithiasis
Erectile dysfunction
Angiomyolipoma of right kidney
Chronic edema
Aortic atherosclerosis
Atherosclerosis of bilateral carotid arteries
Chronic ambulatory dysfunction uses cane
Past Surgical History: Reports Other
Additional Past Surgical History:
Bilateral hip replacement
Tonsillectomy
Lithotripsy
Social History
Unable to obtain full social history at this time due to: Dementia
Tobacco: Non-smoker
Personal: (Ex- Miri Ramirez is his power of dental hygienist mobile coordinator)
Living: Alone ()
Employment: Retired
Family History
Family History: Not pertinent
Allergies / Home Medications
Allergies reflects when Allergies were last updated in [facility].
Home Medications with original date entered in [facility]
Allergy/Medication List:
Allergies
Allergy/AdvReac Type Severity Reaction Status Date / Time
meperidine HCl [From Demerol] Allergy regurgitated Verified 11/30/24 17:36
during
surgery
Penicillins Allergy Hives Verified 11/30/24 17:36
Home Medications
atorvastatin 10 mg tablet 10 mg PO DAILY High Cholesterol 11/15/24
glucosamine sulf dipot chlr,msm,chond 550 mg-C 30 mg-raina 1 mg capsule (Glucosamine Chondroitin) 1 cap PO Daily Supplement 11/15/24
nifedipine 60 mg tablet,extended release 24 hr 60 mg PO DAILY Blood Pressure 11/15/24
omega-3 fatty acids-fish oil 684 mg-1,200 mg capsule,delayed release 1 cap PO DAILY Supplement 11/15/24
therapeutic multivitamin 1 tab PO DAILY Supplement 11/15/24
ubiquinone 90 mg disintegrating tablet 90 mg PO Daily Supplement 11/15/24
vitamin B complex 1 tab PO DAILY Supplement 11/15/24
divalproex 125 mg capsule,delayed release sprinkle 125 mg PO TID #90 caps 11/20/24
quetiapine 25 mg tablet (Seroquel) 25 mg PO DAILY@1800 11/30/24
Review of Systems
-
History Source: Patient, Family (Nephew spoke with the ER) and Other (Emergency room nurse)
A 12 point ROS was completed and negative except as noted: Yes
Constitutional: Denies Fever or Chills
EENT: Denies Sore Throat or Runny Nose
Respiratory: Denies Cough or Trouble Breathing
Cardiac: Denies Chest Pain, Diaphoresis, Palpitations or Syncope
Abdomen/GI: Denies Abdominal Pain, Nausea, Vomiting, Diarrhea, Constipated, Bloody Stools or Black Stools
: Denies Dysuria, Frequency, Flank Pain, Incontinence, Difficulty Voiding, Urgency or Bleeding
Musculoskeletal: Reports Edema (Left leg edema with tenderness left lateral aspect of leg, negative Homans unreliable due to patient's dementia, right lower extremity negative edema); Denies Joint Pain
Skin: Denies Itching or Rash
Neurological: Denies Dizzy, Headache or Weakness
Endocrine: Reports No Symptoms
Hematologic/Lymphatic: Reports No Symptoms
Psych: Reports Calm
Physical Exam
Vital Signs
Vital Signs
Temp Pulse Resp BP Pulse Ox
97.6 F 77 20 137/71 94
11/30/24 17:36 11/30/24 17:36 11/30/24 17:36 11/30/24 17:36 11/30/24 17:36
Physical Exam
General: Comfortable, Conversant and Other; No Pain or Fever
HEENT: NormoCephalic, Anicteric, Moist mucous membranes, PERRLA, [place]vel Conjunctivae, No Ptosis and Other (Oriented to first and last name only, ex- Miri's name otherwise has no idea where he is cannot distinguish she is at a hospital knows none
of his past medical history difficult to follow commands)
Respiratory: Clear; No Wheezes, Rales or Rhonchi
Cardiac: S1/S2, Regular Rhythm and Peripheral Edema (+2 left lower extremity); No Murmur, Rub or Gallop
Breast: Deferred by me
GI: Soft, Non Tender, Non Distended, Normal Bowel Sounds and No Hepatosplenomegaly
Rectal: Deferred by Provider
Genito-urinary: Deferred by me
Musculoskeletal: No Clubbing, No Cyanosis and Edema, Left Lower Extremity (+2 left lower extremity edema with left lateral pain, negative Homans' sign although unreliable due to patient's dementia); No Edema, Left Upper Extremity, Edema, Right Upper
Extremity or Edema, Right Lower Extremity
Skin: Warm, Dry and Rash
Neuro: Awake, Alert, Oriented (Oriented to first and last name only, ex- Miri's name otherwise has no idea where he is cannot distinguish she is at a hospital knows none of his past medical history difficult to follow commands), Cranial Nerves
Intact and No Sensory Deficits; No Slurred Speech, Facial Droop, Tremors or Sedated
Psych: Calm
Laboratory Results
-
11/30/24 19:51
11/30/24 19:51
Laboratory Results
PT 14.9 Sec (11.4-14.6) H 11/30/24 19:51
INR 1.14 11/30/24 19:51
APTT 33.6 Sec (23.4-35.0) 11/30/24 19:51
Total Bilirubin 0.7 mg/dl (0.2-1.3) 11/30/24 19:51
AST 18 U/L (17-59) 11/30/24 19:51
ALT 16 U/L (0-50) 11/30/24 19:51
Alkaline Phosphatase 87 U/L (38-126) 11/30/24 19:51
Impression/Plan
-
Impression/plan:
Admit to [facility]
#Left leg swelling secondary to occlusive DVT left femoral, popliteal, PT veins possible provoked recent hospital stay 11/14 - 11/20/2024 secondary to delirium/known dementia severe
-IV heparin drip
-Tylenol as needed pain
-PT/OT/case management
-Consult case management-patient will need anticoagulation lives alone is a fall risk due to chronic ambulatory dysfunction and severe dementia
Ultrasound left lower extremity:ACUTE OCCLUSIVE DEEP VENOUS THROMBOSIS in the LEFT FEMORAL, POPLITEAL, and POSTERIOR TIBIAL VEINS.
#Dementia severe with history of agitation and delirium
Recent admission 11/14-11/20/1908/29/2025, had negative CT head for stroke
Depakote was started on 11/18/2024 and increased to 125 mg p.o. 3 times daily while inpatient due to delirium, agitation, yelling
Oriented to first and last name, third ex- Miri who is his power of dental hygienist mobile coordinator patient does not know the year, place, medical history cannot comprehend most of a conversation
-Seroquel 25 mg daily at 1800
#Vitamin B12 deficiency
Started B12 supplement recent November 2024 admission B12 marginally low
#Prostate cancer hx unclear history greater than 2008
-Per chart
#Chronic ambulatory dysfunction uses cane
-PT/OT/case management consult
#Hypertension�benign
-BP 137/71
-Continue nifedipine 60 mg daily
# HLD
Continue atorvastatin 10 mg daily, omega-3 fatty acid
#PVC
#Right bundle branch block hx
Other PMH:
History of Lyme disease
Hyperlipidemia
Basal cell carcinoma
Squamous cell carcinoma of right foot
History of nephrolithiasis
Erectile dysfunction
Angiomyolipoma of right kidney
Chronic edema
Aortic atherosclerosis
Atherosclerosis of bilateral carotid arteries
Full code
--- NOTE | 2024-11-30 21:06 | W.PN.UPDATE ---
Update Note
Progress Note Update
This is an addendum to the H&P written by Alexsandra Sprague on 11/30/2024.� Patient seen and examined independently with SIGNAL CIRCUIT DESIGNER.
89-year-old male past medical history of hypertension, hyperlipidemia, prostate cancer, nephrolithiasis, dementia with behavioral disturbance, B12 deficiency, aspiration syndrome, presenting for left leg swelling and pain for the past week.� No
shortness of breath. Patient ambulates with a walker.�
Venous ultrasound shows occlusive DVT in the left femoral, popliteal and posterior tibial veins.� Provoking factors include likely�decreased mobility as well as history of prostate cancer.
Heparin drip started.
[2024-11-30] MEDS: SEROQUEL 25 MG PO (21:25)
[2024-11-30] MEDS: HEPARIN 5800 UNITS IV (21:26)
[2024-11-30] MEDS: HEPARIN 25000 UNITS/250 ML IV (21:31)
[2024-11-30] MEDS: ATIVAN 1 MG IV (22:56)
[2024-11-30] MEDS: NSS (PRESERVATIVE FREE) 0.5 ML IV (22:57)
[2024-11-30] MEDS: FLUSH (NSS) 1 FLUSH IV (22:58)
--- NOTE | 2024-11-30 23:00 | PTCARENOTE ---
Pt. came up from E.D., awake, alert, confused, combative with staff, kicking, trying to bite staff, cursing and screaming at staff, restraints ordered, staff of four had to hold pt. down to put on restraints, unable to assess at that moment, call
huang within reach.
--- NOTE | 2024-11-30 23:05 | PTCARENOTE ---
Notified TAIWO Altman regarding pt. being combative with staff, ordered Ativan 1 mg IV, will continue to monitor.
[2024-11-30] MEDS: DEPAKOTE SPRINKLE 125 MG PO (23:34)
--- NOTE | 2024-12-01 | PTCARENOTE ---
Pt. took his penis out of attends and urinated on bed with restraints on, staff changed linens with pt. kicking and cursing.
[2024-12-01 00:29] VITALS: BP 140/88
[2024-12-01 00:30] VITALS: BMI 30.3
[2024-12-01 04:35] LABS: APTT 91.3 Sec (23.4-35.0)
[2024-12-01 04:54] LABS: ALT (SGPT) 17 U/L (0-50); AST (SGOT) 39 U/L (17-59); Albumin 3.7 g/dl (3.5-5.0); Alkaline Phosphatase 80 U/L (38-126); Blood Urea Nitrogen 9 mg/dl (9-20); Carbon Dioxide 22 mmol/L (22-30); Chloride 109 mmol/L (98-107); Estimated Creatinine Clearance 67 ml/min; Glucose 114 mg/dl (70-99); Potassium 4.9 mmol/L (3.5-5.1); Sodium 140 mmol/L (135-145); Total Protein 6.8 g/dl (6.3-8.2); eGFR > 60.00
[2024-12-01 07:05] VITALS: BP 155/68
[2024-12-01] MEDS: B COMPLEX w/VITAMIN C 1 CAPLET PO (08:18)
[2024-12-01] MEDS: PROCARDIA XL (EXTENDED RELEASE) 60 MG PO (08:18)
[2024-12-01] MEDS: THERAGRAN 1 TABLET PO (08:19)
[2024-12-01] MEDS: DEPAKOTE SPRINKLE 125 MG PO ×3 (08:19→22:08)
[2024-12-01] MEDS: LIPITOR 10 MG PO (08:19)
[2024-12-01 09:47] LABS: % Basophils 0.5 % (0-2); % Eosinophils 8.2 % (0-6); % Immature Granulocytes 0.3 % (0-0.5); % Lymphocytes 23.4 % (20.5-51.1); % Monocytes 7.9 % (1.7-9.3); % Neutrophils 59.7 % (42.2-75.2); Absolute Eosinophils 0.6 10^3/uL (0-0.7); Absolute Lymphocytes 1.8 10^3/uL (1.2-3.4); Absolute Monocytes 0.6 10^3/uL (0.1-0.6); Absolute Neutrophils 4.6 10^3/uL (1.4-6.5); Hemoglobin 13.6 g/dL (13.0-18.0); Mean Corp Hgb Conc. 32.4 g/dL (33.0-37.0); Mean Corpuscular Hgb 30.3 pg (27.0-31.0); Mean Corpuscular Volume 93.5 fL (80.0-94.0); Mean Platelet Volume 9.6 fL (7.4-10.4); Nucleated Red Blood Cells % 0 % (-); Platelet Count 311 10^3/uL (130-400); Red Blood Cell Count 4.49 10^6/uL (4.70-6.10); Red Cell Dist. Width 12.7 % (11.5-14.5); White Blood Cell Count 7.7 10^3/uL (4.8-10.8)
[2024-12-01 09:59] LABS: APTT 129.4 Sec (23.4-35.0)
--- NOTE | 2024-12-01 10:37 | W.PN.HOSP.TC ---
Today's Communication/Plan
-
continue heparin gtt. IV haldol as needed for acute agitation.
Assessment / Plan
Assessment / Plan
89-year-old man with history of dementia came in with left leg swelling over the past week with some mild pain. no known trauma or falls. cigar smoker. Recent hospital stay.
US: ACUTE OCCLUSIVE DEEP VENOUS THROMBOSIS in the LEFT FEMORAL, POPLITEAL, and POSTERIOR TIBIAL VEINS.
1. Left leg swelling secondary to occlusive DVT left femoral, popliteal, PT veins possible likely provoked given recent hospital stay 11/14 - 11/20/2024 secondary to delirium/known dementia - severe
-IV heparin drip
will need to eventually switch to sustainable chronic treatment
Hopefully oral
-Tylenol as needed pain
-PT/OT/case management
-Consult case management-patient will need exterminator helper anticoagulation
lives alone is a fall risk due to chronic ambulatory dysfunction and severe dementia
(proxy) states his wishes would be to go home, despite risk of falls. She understands a fall may lead to life threatening bleeding.
2. Dementia, now severe, with history of agitation and delirium, Recent admission 11/14-11/20/1908/29/2025, had negative CT head for stroke
Depakote was started on 11/18/2024 and increased to 125 mg p.o. 3 times daily while inpatient due to delirium, agitation, yelling
Oriented to first and last name, third ex- Miri who is his power of kilnman patient does not know the year, place, medical history cannot comprehend most of a conversation
-continue Seroquel 25 mg daily at 1800
-IV haldol as needed for acute agitation
3. Other medical issues to note:
Vitamin B12 deficiency
-Started B12 supplement recent November 2024 admission B12 marginally low
Prostate cancer hx unclear history greater than 2008
Chronic ambulatory dysfunction uses cane
-PT/OT/case management consult
Hypertension�benign
-BP 137/71
-Continue nifedipine 60 mg daily
HLD
-Continue atorvastatin 10 mg daily, omega-3 fatty acid
PVC
Right bundle branch block hx
Other PMH:
History of Lyme disease
Hyperlipidemia
Basal cell carcinoma
Squamous cell carcinoma of right foot
History of nephrolithiasis
Erectile dysfunction
Angiomyolipoma of right kidney
Chronic edema
Aortic atherosclerosis
Atherosclerosis of bilateral carotid arteries
Full code
Heparin gtt for DVTp
Anticipated Discharge: > 48 hours
Subjective/Interval History
-
Date of Service: December 01, 2024
Objective Data
-
Labs:
Laboratory Results
12/01/24 12/01/24
04:07 09:35
WBC 7.7
Hgb 13.6
Hct 42.0
Plt Count 311
APTT 91.3 H 129.4 H
Sodium 140
Potassium 4.9
Chloride 109 H
Carbon Dioxide 22
BUN 9
Creatinine 0.6 L
Glucose 114 H
Calcium 9.0
Total Bilirubin 1.0
AST 39
ALT 17
Alkaline Phosphatase 80
Vital Signs:
Vital Signs
Temp Pulse Resp BP Pulse Ox
97.4 F 53 18 155/68 94
12/01/24 07:05 12/01/24 07:05 12/01/24 07:05 12/01/24 08:18 12/01/24 07:05
[2024-12-01] MEDS: HALDOL 1 MG IV (13:39)
[2024-12-01 15:44] VITALS: BP 168/94
[2024-12-01] MEDS: SEROQUEL 25 MG PO (17:06)
[2024-12-01] MEDS: HEPARIN 25000 UNITS/250 ML IV (17:52)
[2024-12-01 18:25] LABS: APTT 86.3 Sec (23.4-35.0)
[2024-12-01 23:43] VITALS: BP 138/74
[2024-12-02 00:55] VITALS: BP 153/69
[2024-12-02 01:24] LABS: APTT 108.9 Sec (23.4-35.0)
[2024-12-02 06:00] VITALS: BMI 29.1
[2024-12-02 07:27] LABS: Hematocrit 42.7 % (39.0-52.0); Hemoglobin 14.6 g/dL (13.0-18.0); Mean Corp Hgb Conc. 34.2 g/dL (33.0-37.0); Mean Corpuscular Hgb 30.2 pg (27.0-31.0); Mean Corpuscular Volume 88.4 fL (80.0-94.0); Mean Platelet Volume 11.2 fL (7.4-10.4); Platelet Count 240 10^3/uL (130-400); Red Blood Cell Count 4.83 10^6/uL (4.70-6.10); Red Cell Dist. Width 12.8 % (11.5-14.5); White Blood Cell Count 8.6 10^3/uL (4.8-10.8)
[2024-12-02 07:35] VITALS: BP 146/95
[2024-12-02] MEDS: B COMPLEX w/VITAMIN C 1 CAPLET PO (08:26)
[2024-12-02] MEDS: PROCARDIA XL (EXTENDED RELEASE) 60 MG PO (08:26)
[2024-12-02] MEDS: THERAGRAN 1 TABLET PO (08:26)
[2024-12-02] MEDS: DEPAKOTE SPRINKLE 125 MG PO ×3 (08:26→21:21)
[2024-12-02] MEDS: LIPITOR 10 MG PO (08:27)
[2024-12-02 09:23] LABS: Blood Urea Nitrogen 11 mg/dl (9-20); Calcium 9.4 mg/dl (8.4-10.2); Carbon Dioxide 26 mmol/L (22-30); Chloride 105 mmol/L (98-107); Estimated Creatinine Clearance 57 ml/min; Glucose 119 mg/dl (70-99); Potassium 4.3 mmol/L (3.5-5.1); Sodium 140 mmol/L (135-145); eGFR > 60.00
--- NOTE | 2024-12-02 11:14 | W.PN.HOSP.TC ---
Today's Communication/Plan
-
see A/P
Assessment / Plan
Assessment / Plan
89-year-old man with history of dementia, p/w left leg swelling over the past week with some mild pain. No known trauma or falls. Cigar smoker. Recent hospital stay.
US: ACUTE OCCLUSIVE DEEP VENOUS THROMBOSIS in the LEFT FEMORAL, POPLITEAL, and POSTERIOR TIBIAL VEINS.
A/P:
# Left leg pain 2/2 acute occlusive DVT involving left femoral, popliteal, PT veins; possibly provoked given recent hospital stay 11/14 - 11/20/2024 secondary to delirium/known dementia
Switch IV heparin drip to Eliquis 10 mg BID , then 5 mg BID after that
Tylenol as needed pain
PT/OT/case management
(proxy) states his wishes would be to go home, despite risk of falls. She understands a fall may lead to life threatening bleeding while on AC.
# Dementia, now severe, with history of agitation and delirium, Recent admission 11/14-11/20/1908/29/2025, had negative CT head for stroke
Pt is awake, conversant, but not orientated to year, place, medical history; cannot comprehend most of conversation
Depakote was started on 11/18/2024 and increased to 125 mg p.o. 3 times daily while inpatient due to delirium, agitation, yelling
continue Seroquel 25 mg daily at 1800
IV haldol as needed for acute agitation
Other medical issues to note:
# Vitamin B12 deficiency, started B12 supplement recently in November 2024
# Prostate cancer hx, unclear history
# Chronic ambulatory dysfunction uses cane, PT/OT/case management consult
# Essential Hypertension; Continue nifedipine 60 mg daily
# HLD, Continue atorvastatin 10 mg daily, omega-3 fatty acid
# PVC
# Right bundle branch block hx
# History of Lyme disease
Full code
DVT ppx: now on Eliquis 10 mg BID
DW ex- in person at bedside
total time spent 51 min
Anticipated Discharge: 24 - 48 hours
Subjective/Interval History
-
Date of Service: December 02, 2024
Objective Data
-
Labs:
Laboratory Results
12/02/24 12/02/24 12/02/24
01:05 06:46 08:52
WBC 8.6
Hgb 14.6
Hct 42.7
Plt Count 240 D
APTT 108.9 H
Sodium Cancelled 140
Potassium Cancelled 4.3
Chloride Cancelled 105
Carbon Dioxide Cancelled 26
BUN Cancelled 11
Creatinine Cancelled 0.7
Glucose Cancelled 119 H
Calcium Cancelled 9.4
Vital Signs:
Vital Signs
Temp Pulse Resp BP Pulse Ox
36.5 C 59 18 146/95 97
12/02/24 07:35 12/02/24 08:26 12/02/24 07:35 12/02/24 08:26 12/02/24 07:35
I&O
12/01/24 12/02/24 12/03/24
06:59 06:59 06:59
Output Total 100 / 100
Balance -100 / -100
Review of Systems
-
Unable to obtain full review of systems at this time due to: Dementia
Physical Exam
-
General: Well Developed, Well Nourished, No Apparent Distress, Comfortable and Conversant
Respiratory: Clear to Auscultation and Non Labored Respirations; Negative Accessory Resp Muscle Use
Cardiac: Regular Rhythm and S1/S2
GI: Soft, Nontender and Nondistended
Musculoskeletal: No Edema
Neuro: Awake; Negative AO x 3
Psych: Apparent Dementia
Data Reviewed
-
Ultrasound: Report Reviewed by me
Labs: Labs Reviewed by me
[2024-12-02] MEDS: ELIQUIS 10 MG PO ×2 (12:17→21:21)
[2024-12-02] MEDS: HALDOL 1 MG IV (13:00)
[2024-12-02 15:55] VITALS: BP 112/92
[2024-12-02] MEDS: SEROQUEL 25 MG PO (17:25)
[2024-12-02 23:55] VITALS: BP 153/69
[2024-12-03 06:00] VITALS: BMI 29.1
[2024-12-03 07:41] VITALS: BP 187/85
[2024-12-03 07:44] LABS: Hematocrit 44.5 % (39.0-52.0); Hemoglobin 14.9 g/dL (13.0-18.0); Mean Corp Hgb Conc. 33.5 g/dL (33.0-37.0); Mean Corpuscular Hgb 30.3 pg (27.0-31.0); Mean Corpuscular Volume 90.6 fL (80.0-94.0); Mean Platelet Volume 9.4 fL (7.4-10.4); Platelet Count 368 10^3/uL (130-400); Red Blood Cell Count 4.91 10^6/uL (4.70-6.10); Red Cell Dist. Width 12.7 % (11.5-14.5); White Blood Cell Count 11.1 10^3/uL (4.8-10.8)
--- NOTE | 2024-12-03 08:23 | VNURNOTE ---
Chart reviewed. [facility], INCINERATOR PLANT GENERAL SUPERVISOR, MASTER ELECTRICIAN, OT, PT, HIGH VALUE ASSOCIATE. Will continue to follow hospital course and DC plans.
[2024-12-03 08:32] LABS: Blood Urea Nitrogen 14 mg/dl (9-20); Calcium 9.6 mg/dl (8.4-10.2); Carbon Dioxide 25 mmol/L (22-30); Chloride 104 mmol/L (98-107); Estimated Creatinine Clearance 56 ml/min; Glucose 119 mg/dl (70-99); Potassium 4.4 mmol/L (3.5-5.1); Sodium 140 mmol/L (135-145); eGFR > 60.00
[2024-12-03] MEDS: DEPAKOTE SPRINKLE 125 MG PO ×3 (08:55→21:52)
[2024-12-03] MEDS: ELIQUIS 10 MG PO ×2 (08:55→21:52)
[2024-12-03] MEDS: B COMPLEX w/VITAMIN C 1 CAPLET PO (08:55)
[2024-12-03] MEDS: PROCARDIA XL (EXTENDED RELEASE) 60 MG PO (08:55)
[2024-12-03] MEDS: LIPITOR 10 MG PO (08:56)
[2024-12-03] MEDS: THERAGRAN 1 TABLET PO (08:56)
--- NOTE | 2024-12-03 09:36 | W.PN.HOSP.TC ---
Today's Communication/Plan
-
Discharge home with 24-hour care tomorrow
Assessment / Plan
Assessment / Plan
89-year-old man with history of dementia, p/w left leg swelling over the past week with some mild pain. No known trauma or falls. Cigar smoker. Recent hospital stay.
US: ACUTE OCCLUSIVE DEEP VENOUS THROMBOSIS in the LEFT FEMORAL, POPLITEAL, and POSTERIOR TIBIAL VEINS.
A/P:
# Left leg pain 2/2 acute occlusive DVT involving left femoral, popliteal, PT veins; possibly provoked given recent hospital stay 11/14 - 11/20/2024 secondary to delirium/known dementia
Switch IV heparin drip to Eliquis 10 mg BID , then 5 mg BID after that
Tylenol as needed pain
PT/OT/case management
(proxy) states his wishes would be to go home, despite risk of falls. She understands a fall may lead to life threatening bleeding while on AC.
# Dementia, now severe, with history of agitation and delirium, Recent admission 11/14-11/20/1908/29/2025, had negative CT head for stroke
Pt is awake, conversant, but not orientated to year, place, medical history; cannot comprehend most of conversation
Depakote was started on 11/18/2024 and increased to 125 mg p.o. 3 times daily while inpatient due to delirium, agitation, yelling
Continue Seroquel 25 mg daily at 1800
IV haldol as needed for acute agitation
Discharge home with 24-hour care tomorrow
Other medical issues to note:
# Vitamin B12 deficiency, started B12 supplement recently in November 2024
# Prostate cancer hx, unclear history
# Chronic ambulatory dysfunction uses cane, PT/OT/case management consult
# Essential Hypertension; Continue nifedipine 60 mg daily
# HLD, Continue atorvastatin 10 mg daily, omega-3 fatty acid
# PVC
# Right bundle branch block hx
# History of Lyme disease
DVT ppx: now on Eliquis 10 mg BID
Full Code
Total time spent to see the patient on the floor, examine the patient, review data and lab results, discuss treatment plan with patient, nursing staff around 38 minutes.
Physical Exam
General: No acute distress
HEENT: Normocephalic, Atraumatic, EOMI, MMM
Respiratory: Clear to Auscultation bilaterally
Cardiac: Normal S1/S2, Regular Rate and Rhythm
GI: Soft, Nontender, Nondistended, Normal Bowel Sounds
Extremities: No Clubbing, Cyanosis, or Edema
Neuro: Nonfocal/Grossly Intact, pleasantly confused
Psych: Intermittent agitation noted
Anticipated Discharge: Within 24 hours
Subjective/Interval History
-
Date of Service: December 03, 2024
Patient is intermittently agitated and confused. No fever, no vomiting.
Objective Data
-
Labs:
Laboratory Results
12/03/24
07:29
WBC 11.1 H
Hgb 14.9
Hct 44.5
Plt Count 368 D
Sodium 140
Potassium 4.4
Chloride 104
Carbon Dioxide 25
BUN 14
Creatinine 0.7
Glucose 119 H
Calcium 9.6
Vital Signs:
Vital Signs
Temp Pulse Resp BP Pulse Ox
98.2 F 62 17 187/85 97
12/03/24 07:41 12/03/24 07:41 12/03/24 07:41 12/03/24 07:41 12/03/24 07:41
I&O
12/02/24 12/03/24 12/04/24
06:59 06:59 06:59
Intake Total 120 / 120
Output Total 340 / 340
Balance -220 / -220
--- NOTE | 2024-12-03 12:39 | CM ---
CM reviewed chart, placed call to patients ex , Miri, to complete initial assessment. Per Miri, patient resides in a multiple story home, first floor set up, master bedroom, bathroom, kitchen all on first floor. Patient is current with [facility],
has a hospital bed, wheelchair, walker, commode. Miri resides with patient, will have a delivery crew member starting tomorrow through [facility] [phone]. Patient will require ambulance transport upon discharge. IMM verbally reviewed with Miri,
no questions regarding form, placed in chart. CM will continue to follow for all discharge planning needs.
Plan; home with [facility], 02/05 Care, will need ambulance transport
[2024-12-03 15:36] VITALS: BP 123/55
[2024-12-03] MEDS: SEROQUEL 25 MG PO (17:08)
[2024-12-03 23:48] VITALS: BP 144/80
[2024-12-04 06:00] VITALS: BMI 29.6
[2024-12-04 07:36] VITALS: BP 157/69
[2024-12-04] MEDS: PROCARDIA XL (EXTENDED RELEASE) 60 MG PO (07:56)
[2024-12-04] MEDS: ELIQUIS 10 MG PO (07:59)
[2024-12-04] MEDS: DEPAKOTE SPRINKLE 125 MG PO (07:59)
[2024-12-04] MEDS: B COMPLEX w/VITAMIN C 1 CAPLET PO (07:59)
[2024-12-04] MEDS: LIPITOR 10 MG PO (07:59)
[2024-12-04] MEDS: THERAGRAN 1 TABLET PO (07:59)
[2024-12-04] MEDS: TYLENOL 650 MG PO (08:07)
--- NOTE | 2024-12-04 09:16 | W.PN.HOSP.TC ---
Today's Communication/Plan
-
Discharge home with 24-hour care
Assessment / Plan
Assessment / Plan
89-year-old man with history of dementia, p/w left leg swelling over the past week with some mild pain. No known trauma or falls. Cigar smoker. Recent hospital stay.
US: ACUTE OCCLUSIVE DEEP VENOUS THROMBOSIS in the LEFT FEMORAL, POPLITEAL, and POSTERIOR TIBIAL VEINS.
A/P:
# Left leg pain 2/2 acute occlusive DVT involving left femoral, popliteal, PT veins; possibly provoked given recent hospital stay 11/14 - 11/20/2024 secondary to delirium/known dementia
Switch IV heparin drip to Eliquis 10 mg BID x 7 days , then 5 mg BID after that
Tylenol as needed pain
PT/OT/case management
(proxy) states his wishes would be to go home, despite risk of falls. She understands a fall may lead to life threatening bleeding while on AC.
# Dementia, now severe, with history of agitation and delirium, Recent admission 11/14-11/20/1908/29/2025, had negative CT head for stroke
Pt is awake, conversant, but not orientated to year, place, medical history; cannot comprehend most of conversation
Depakote was started on 11/18/2024 and increased to 125 mg p.o. 3 times daily while inpatient due to delirium, agitation, yelling
Continue Seroquel 25 mg daily at 1800
IV haldol as needed for acute agitation
Discharge home with 24-hour care today
Other medical issues to note:
# Vitamin B12 deficiency, started B12 supplement recently in November 2024
# Prostate cancer hx, unclear history
# Chronic ambulatory dysfunction uses cane, PT/OT/case management consult
# Essential Hypertension; Continue nifedipine 60 mg daily
# HLD, Continue atorvastatin 10 mg daily, omega-3 fatty acid
# PVC
# Right bundle branch block hx
# History of Lyme disease
DVT ppx: now on Eliquis 10 mg BID
Full Code
Physical Exam
General: No acute distress
HEENT: Normocephalic, Atraumatic, EOMI, MMM
Respiratory: Clear to Auscultation bilaterally
Cardiac: Normal S1/S2, Regular Rate and Rhythm
GI: Soft, Nontender, Nondistended, Normal Bowel Sounds
Extremities: No Clubbing, Cyanosis, or Edema
Neuro: Nonfocal/Grossly Intact, pleasantly confused
Psych: Intermittent agitation noted
Anticipated Discharge: Today
Subjective/Interval History
-
Date of Service: December 04, 2024
Patient reports feeling better today. No fever, no vomiting.
Objective Data
-
Vital Signs:
Vital Signs
Temp Pulse Resp BP Pulse Ox
98.6 F 76 16 157/69 96
12/04/24 07:36 12/04/24 07:56 12/04/24 07:36 12/04/24 07:56 12/04/24 07:36
I&O
12/03/24 12/04/24 12/05/24
06:59 06:59 06:59
Intake Total 120 / 120 120 / 120
Output Total 340 / 340
Balance -220 / -220 120 / 120
--- NOTE | 2024-12-04 11:09 | CM ---
Addendum entered by Rebecca Acharya 12/04/24 13:53:
CM placed call to ex-, Miri, confirmed 4:30 p.m. ambulance transport, confirmed address.
Original Note:
CM reviewed chart, spoke with patients ex-, Miri, discussed plan for discharge, reports caregiver will be available after 4:00 p.m. at patients home, Miri reports two steps to enter home. Patient scheduled for 4:00 p.m. ambulance transport. CM
will continue to follow for all discharge planning needs.
Plan; home with family and 24/7 care, ambulance transport scheduled.
--- NOTE | 2024-12-04 11:40 | W.DCSUMMARY ---
Discharge Summary
Discharge Data
Date of Admission: 11/30/24
Date of Discharge: 12/04/24
-
Pending Results: No
Hospital Course
Discharge diagnosis:
Acute left lower extremity deep vein thrombosis
Acute left lower extremity pain
Severe dementia with behavioral disturbance
History of prostate cancer
Chronic ambulatory dysfunction
Hospital course:
89-year-old male with a past medical history of dementia, prostate cancer, and chronic ambulatory dysfunction presented with acute left lower extremity pain, and was found to have acute occlusive left lower extremity DVT. Patient was initially
treated with a heparin drip. He was then transitioned to Eliquis 10 mg twice a day for 7 days, then 5 mg twice a day.
Patient was seen in conjunction with PT/OT, who recommended short-term rehab. Patient's wished to take him home. Patient is medically stable for discharge home, with caregivers 02/05. He needs to follow-up with his primary care doctor in 1
week.
Disposition: Home with 02/05 care
Discharge planning: Required 37 minutes
Discharge Plan
-
Patient Disposition: Home (Routine Discharge)
Discharge Diagnosis/Procedures: Acute left lower extremity deep vein thrombosis, dementia with behavioral disturbance
Condition: Fair
Diet: Regular
Activity: As tolerated
Driving Restrictions: No driving
Referrals:
Rick Aguilera MD [Family Provider] - in one week
Prescriptions:
New
Eliquis 5 mg Tablet
See Rx Instructions .ROUTE .COMPLEX Qty: 90 0RF
Rx Instructions:
2 tabs bid through 12/08/24, then 1 tab bid
acetaminophen 325 mg Tablet
650 mg PO Q4HPRN PRN (Reason: mild pain/BURRIS/temp> 100.4F) Qty: 0 0RF
Continued
atorvastatin 10 mg Tablet
10 mg PO DAILY
therapeutic multivitamin Tablet
1 tab PO DAILY
nifedipine 60 mg Tablet Extended Release 24hr
60 mg PO DAILY
vitamin B complex Tablet
1 tab PO DAILY
omega-3 fatty acids-fish oil 684-1,200 mg Capsule,Delayed Release(Dr/Ec)
1 cap PO DAILY
ubiquinone 90 mg Tablet,Disintegrating
90 mg PO Daily
Glucosamine Chondroitin 550-30-1 mg Capsule
1 cap PO Daily
divalproex 125 mg Capsule, Delayed Rel Sprinkle
125 mg PO TID Qty: 90 0RF
quetiapine [Seroquel] 25 mg Tablet
25 mg PO DAILY@1800
Discharge Orders:
Discharge Patient (As Directed); Ordered 12/04/24
Ordered By: Arvind Boyce
Discharge Date and Time
Print Language: [id number]
[2024-12-04] MEDS: HALDOL 1 MG IV (14:14)
[2024-12-04 15:03] VITALS: BP 149/66
[2024-12-04 15:45] VITALS: BP 149/66
== END 2024-12-04 17:51 | disposition home health service (06) | DRG 300 ==
LOC: 4 WEST ACU 21:06
PROVIDERS: Clinical Nurse Specialist Family Health; Internal Medicine; ADMITTING PHYSICIAN Hospitalist; ATTENDING PHYSICIAN Family Medicine; EMERGENCY PHYSICIAN Emergency Medicine; FAMILY PHYSICIAN Internal Medicine
DX: I82.412 Acute embolism and thrombosis of left femoral vein (principal); F03.C11 Unspecified dementia, severe, with agitation; F03.C18 Unspecified dementia, severe, with other behavioral disturbance; Z85.46 Personal history of malignant neoplasm of prostate; Z87.442 Personal history of urinary calculi; Z96.643 Presence of artificial hip joint, bilateral; F17.290 Nicotine dependence, other tobacco product, uncomplicated; I10 Essential (primary) hypertension; E78.00 Pure hypercholesterolemia, unspecified; E53.8 Deficiency of other specified B group vitamins; Z86.19 Personal history of other infectious and parasitic diseases; I82.432 Acute embolism and thrombosis of left popliteal vein; I82.442 Acute embolism and thrombosis of left tibial vein; Z85.828 Personal history of other malignant neoplasm of skin; N52.9 Male erectile dysfunction, unspecified; I45.10 Unspecified right bundle-branch block; I49.3 Ventricular premature depolarization; I65.23 Occlusion and stenosis of bilateral carotid arteries; I70.0 Atherosclerosis of aorta; Z79.899 Other long term (current) drug therapy; Z82.3 Family history of stroke; Z88.0 Allergy status to penicillin
CPT/HCPCS: 80048; 80053; 85025; 85027; 85610; 85730; 87070; 93005; 93971; 96365; 99284